=== PATIENT | female | born 2000 | race Caucasian/White ===

== ENCOUNTER 2023-12-28 01:27 | Observation (INO) ==
--- NOTE | 2023-12-28 01:42 | Emergency Department Note ---
Impression & Plan Colon abnormality, Diffuse abdominal pain ED Provider Note Name: CASSANDRA HOLLY Age: 23 Sex: Female Arrives Via: Ambulance Informant: Patient ED Provider: Fox Soliz MD Chief Complaint: Abdominal pain Impression: As per impressions above Medical Decision Makin-year-old female without significant past medical history arrives for evaluation of severe abdominal pain. By examination patient has a moderately distended abdomen tympanic and tender to palpation throughout. Patient requiring multiple rounds of IV narcotics. She is emergently taken to CT scan which reveals dilated colon but no clear evidence of obstruction per radiologist. I had significant concerns thus consulted general surgery who evaluated patient. They state they do not feel that this is a surgical emergency and will continue to monitor her and have requested medicine to admit her. With assistance I did discuss my concerns patient states with them especially when a lactic acid was obtained which is somewhat elevated. Laboratory workup is unremarkable. Patient is not . Patient is with her significant other and she has 2 children. She makes it clear she has no concerns for STI risk. She is not having any vaginal discharge other than her typical menstrual bleeding. I do not feel this is consistent with PID or torsion. Triage/Nursing Notes reviewed by Me Differential:Perforated bowel, ischemic bowel, aortic pathology, appendicitis, cholecystitis, pancreatitis, ovarian cyst rupture with hemorrhage, renal colic, pyelonephritis, PID, ectopic , torsion, many other pathologies considered Vital Signs: reviewed and remarkable for no significant abnormalities Interventions: Dilaudid 1 mg IV x 2, fentanyl 100 mcg IV, Dilaudid 0.5 mg IV, normal saline bolus Labs:ED labs Reviewed by me and remarkable for elevated lactic acid Imaging:CT of the abdomen pelvis with IV contrast. As per my informal interpretation. Diffusely dilated large bowel with air-fluid levels. Moderately dilated gastric body. See radiologist read for full however no clear obstruction noted by them. Cardiac/Tele Monitoring: Cardiac Monitoring: An Order was placed for continuous cardiac monitoring. The monitor shows a rate of 80 with a normal sinus rhythm. Consults:Discussed with general surgery service who urgently evaluated patient at bedside. They do not feel patient requires emergent operative evaluation. Discussed with Dr. Mcneil of hospitalist service. They will bring patient in for further monitoring with surgical team consulting along. Plan: Disposition:Hospitalization. Condition: Good History of Present Illness: 23-year-old female arrives for evaluation of abdominal pain. Patient notes this evening she started with lower pelvic abdominal pain. It is relatively severe but she related to her prior pain with periods. She has been having a heavy period the last few days. This is the second menstrual cycle she has had since stopping control a month ago. Patient states that pain over the evening has now become diffuse. It radiates to bilateral upper abdomen. Severe with any movement. Nothing makes better. EMS called issues given IV Toradol with minimal improvement. Patient denies any previous pain like this. She has no history of abdominal surgeries. Patient has 2 previous pregnancies and states this feels just as bad as the labor pains. Past Medical History: Heavy menstrual periods, recurrent UTIs Home Medications: As needed Benadryl, nitrofurantoin Allergies: No known allergies Vitals:Blood Pressure: 108/65, Pulse 91, RR 16, T 36.7C, O2 99% on RA Physical Exam: GENERAL: Patient is very uncomfortable appearing and in moderate distress. RESPIRATORY: No dyspnea. Clear to auscultation and equal bilaterally. CARDIOVASCULAR: Regular rate and rhythm.No murmur appreciated. GASTROINTESTINAL: Moderately distended hyperactive bowel sounds with diffuse tenderness to palpation. EXTREMITIES: Normal motion all extremities, no cyanosis, no edema. NEUROLOGIC: Alert and oriented. No focal neurologic deficits appreciated SKIN: No rash, no jaundice, no diaphoresis. PSYCH: Appropriate GCS: 15 ED Course: Times/Reassessments: Continued significant pain requiring multiple rounds of IV narcotics prior to eventually feeling bit better. Agreeable to hospitalization. Fox Soliz MD Past Med/Surg History Problem List (Updated 12/28/23 @ 06:46 by Fox Soliz MD) Diffuse abdominal pain (Acute) Colon abnormality (Acute) Abdominal pain Social History Smoking Status: Never smoker Preferred Language: Welsh Feels Safe at Home: Yes Allergies Allergies Allergy/AdvReac Type Severity Reaction Status Date / Time diphenhydramine Allergy Swelling Verified 12/28/23 04:40 [From Benadryl] of Lip/Tongue/Throat nitrofurantoin Allergy Swelling Verified 12/28/23 04:40 of Lip/Tongue/Throat Results & Data (ED) Vital Signs Vital Signs - 24 hr 12/28/23 01:20 12/28/23 01:31 12/28/23 01:33 Temperature 36.7 C Temperature Source Oral Pulse Rate 101 H 102 H 108 H Pulse Rate from SpO2 Sensor 101 H Pulse Rhythm Regular Pulse Strength Normal Respiratory Rate 22 37 H Respiratory Effort / Characteristics Non-Labored Spontaneous Respiratory Depth Normal Respiratory Pattern Regular Blood Pressure 128/77 128/77 Blood Pressure Mean 94 94 Blood Pressure Position Lying Pulse Oximetry 98 99 Oxygen Delivery Method Room Air Sepsis Recent Fever Within 48 Hours No Sepsis New/Unexplained Change in Mental Status N/A Sepsis Action Taken by Nursing Physician Notified 12/28/23 02:18 12/28/23 02:30 12/28/23 03:30 Temperature Temperature Source Pulse Rate 132 H 76 Pulse Rate from SpO2 Sensor 137 H 70 Pulse Rhythm Pulse Strength Respiratory Rate 32 H 20 Respiratory Effort / Characteristics Respiratory Depth Respiratory Pattern Blood Pressure 130/87 130/56 L 96/48 L Blood Pressure Mean 107 80 64 Blood Pressure Position Pulse Oximetry 81 L 100 Oxygen Delivery Method Sepsis Recent Fever Within 48 Hours Sepsis New/Unexplained Change in Mental Status Sepsis Action Taken by Nursing 12/28/23 04:00 12/28/23 04:33 12/28/23 04:57 Temperature Temperature Source Pulse Rate 83 80 Pulse Rate from SpO2 Sensor 86 Pulse Rhythm Pulse Strength Respiratory Rate 25 H 16 Respiratory Effort / Characteristics Respiratory Depth Respiratory Pattern Blood Pressure 108/71 119/85 108/65 Blood Pressure Mean 85 96 79 Blood Pressure Position Pulse Oximetry 97 99 Oxygen Delivery Method Sepsis Recent Fever Within 48 Hours Sepsis New/Unexplained Change in Mental Status Sepsis Action Taken by Nursing 12/28/23 05:36 Temperature Temperature Source Pulse Rate 91 H Pulse Rate from SpO2 Sensor Pulse Rhythm Pulse Strength Respiratory Rate Respiratory Effort / Characteristics Respiratory Depth Respiratory Pattern Blood Pressure Blood Pressure Mean Blood Pressure Position Pulse Oximetry Oxygen Delivery Method Sepsis Recent Fever Within 48 Hours Sepsis New/Unexplained Change in Mental Status Sepsis Action Taken by Nursing Laboratory Data 12/28/23 Unknown 12/28/23 Unknown Lab Results 12/28/23 12/28/23 12/28/23 Range/Units 02:42 02:58 04:27 WBC (4.8-10.8) K/ul RBC (4.20-5.40) M/uL Hgb (12.0-16.0) g/dl Hct (37.0-47.0) % MCV (80.0-100.0) fL MCH (25.0-34.0) pg MCHC (32.0-36.0) g/dL RDW Std Deviation (36.4-46.3) fL RDW Coeff of Dayana (11.5-14.5) % Plt Count (130-400) K/uL MPV (9.4-12.4) fL Immature Gran % (Auto) % Neut % (Auto) % Lymph % (Auto) % Roberts % (Auto) % Eos % (Auto) % Baso % (Auto) % Neut # (Auto) (1.40-6.50) K/uL Lymph # (Auto) (1.20-3.40) K/uL Roberts # (Auto) (0.11-0.59) K/uL Eos # (Auto) (0.00-0.50) K/uL Baso # (Auto) (0.00-0.20) K/uL Immature Gran # (Auto) (0.01-0.20) K/uL VBG pH (7.36-7.41) VBG pCO2 (38-50) mmHg VBG pO2 mmHg VBG HCO3 mmol/L VBG O2 Saturation % VBG Base Excess mEq/L Sodium (136-145) mmol/L Potassium (3.5-5.1) mmol/L Chloride (98-107) mmol/L Carbon Dioxide (21-32) mmol/L Anion Gap (3-11) BUN (6-23) mg/dl Creatinine (0.6-1.2) mg/dl Est Cr Clr Drug Dosing ml/min eGFR BUN/Creatinine Ratio (10-20) Glucose (70-99(Fasting)) mg/dl Lactate 2.2 H* 1.4 (0.4-2.0) mmol/L Calcium (8.6-10.3) mg/dl Magnesium (1.7-2.4) mg/dl Total Bilirubin (0.2-1.0) mg/dl Direct Bilirubin (0-0.2) mg/dl AST (13-39) U/L ALT (7-52) U/L Alkaline Phosphatase (34-104) U/L Total Protein (6.0-8.3) gm/dl Albumin (3.4-5.0) gm/dl Lipase (11-82) U/L TSH (0.300-4.500) uIu/ml HCG, Qual (Negative) Urine Color Yellow Urine Appearance Clear (Clear) Urine pH 7.0 (4.5-7.5) Ur Specific Holman 1.015 (1.000-1.030) Urine Protein Negative (Negative) Urine Glucose (UA) Negative (Negative) Urine Ketones Negative (Negative) Urine Blood 3+ H (Negative) Urine Nitrite Negative (Negative) Urine Bilirubin Negative (Negative) Urine Urobilinogen Negative (Negative) Ur Leukocyte Esterase 2+ H (Negative) Urine WBC (Auto) 0-5 (0-5) /hpf Urine RBC (Auto) 11-20 H (0-2) /hpf U Hyaline Cast (Auto) 0-2 (0-2) /lpf U Epithel Cells (Auto) 0-2 (0-2) /hpf Urine Bacteria (Auto) None Seen (None Seen) Urine Opiates Screen Neg (Neg) Ur Methadone, Qual Neg (Neg) Urine Fentanyl Screen Pos H (Neg) Urine Barbiturates Neg (Neg) Ur Phencyclidine (PCP) Neg (Neg) U Amphetamin/Meth Scrn Neg (Neg) MDMA (Ecstasy) Screen Neg (Neg) U Benzodiazepines Scrn Neg (Neg) Ur Cocaine Metabolite Neg (Neg) U Marijuana (THC) Screen Neg (Neg) 12/28/23 12/28/23 Range/Units 04:44 Unknown WBC 9.90 (4.8-10.8) K/ul RBC 4.06 L (4.20-5.40) M/uL Hgb 12.5 (12.0-16.0) g/dl Hct 35.8 L (37.0-47.0) % MCV 88.2 (80.0-100.0) fL MCH 30.8 (25.0-34.0) pg MCHC 34.9 (32.0-36.0) g/dL RDW Std Deviation 38.3 (36.4-46.3) fL RDW Coeff of Dayana 11.8 (11.5-14.5) % Plt Count 393 (130-400) K/uL MPV 10.2 (9.4-12.4) fL Immature Gran % (Auto) 0.2 % Neut % (Auto) 62.3 % Lymph % (Auto) 28.7 % Roberts % (Auto) 6.7 % Eos % (Auto) 1.4 % Baso % (Auto) 0.7 % Neut # (Auto) 6.17 (1.40-6.50) K/uL Lymph # (Auto) 2.84 (1.20-3.40) K/uL Roberts # (Auto) 0.66 H (0.11-0.59) K/uL Eos # (Auto) 0.14 (0.00-0.50) K/uL Baso # (Auto) 0.07 (0.00-0.20) K/uL Immature Gran # (Auto) 0.02 (0.01-0.20) K/uL VBG pH 7.43 H (7.36-7.41) VBG pCO2 35 L (38-50) mmHg VBG pO2 61 mmHg VBG HCO3 23 mmol/L VBG O2 Saturation 91.4 % VBG Base Excess -0.6 mEq/L Sodium 139 (136-145) mmol/L Potassium 2.9 L (3.5-5.1) mmol/L Chloride 105 (98-107) mmol/L Carbon Dioxide 20 L (21-32) mmol/L Anion Gap 14 H (3-11) BUN 9 (6-23) mg/dl Creatinine 0.71 (0.6-1.2) mg/dl Est Cr Clr Drug Dosing 123.3 ml/min eGFR 122.45 BUN/Creatinine Ratio 12.7 (10-20) Glucose 106 H (70-99(Fasting)) mg/dl Lactate (0.4-2.0) mmol/L Calcium 9.7 (8.6-10.3) mg/dl Magnesium 1.9 (1.7-2.4) mg/dl Total Bilirubin 0.3 (0.2-1.0) mg/dl Direct Bilirubin 0.1 (0-0.2) mg/dl AST 22 (13-39) U/L ALT 13 (7-52) U/L Alkaline Phosphatase 66 (34-104) U/L Total Protein 7.4 (6.0-8.3) gm/dl Albumin 4.7 (3.4-5.0) gm/dl Lipase 28 (11-82) U/L TSH 3.400 (0.300-4.500) uIu/ml HCG, Qual Negative (Negative) Urine Color Urine Appearance (Clear) Urine pH (4.5-7.5) Ur Specific Holman (1.000-1.030) Urine Protein (Negative) Urine Glucose (UA) (Negative) Urine Ketones (Negative) Urine Blood (Negative) Urine Nitrite (Negative) Urine Bilirubin (Negative) Urine Urobilinogen (Negative) Ur Leukocyte Esterase (Negative) Urine WBC (Auto) (0-5) /hpf Urine RBC (Auto) (0-2) /hpf U Hyaline Cast (Auto) (0-2) /lpf U Epithel Cells (Auto) (0-2) /hpf Urine Bacteria (Auto) (None Seen) Urine Opiates Screen (Neg) Ur Methadone, Qual (Neg) Urine Fentanyl Screen (Neg) Urine Barbiturates (Neg) Ur Phencyclidine (PCP) (Neg) U Amphetamin/Meth Scrn (Neg) MDMA (Ecstasy) Screen (Neg) U Benzodiazepines Scrn (Neg) Ur Cocaine Metabolite (Neg) U Marijuana (THC) Screen (Neg) Administered Medications Magnesium Sulfate/Dextrose (Magnesium Sulfate / D5w) 1 gm in 100 mls @ 50 mls/hr IV ONE STA Stop: 12/28/23 06:43 Last Admin: 12/28/23 06:16 Dose: 50 mls/hr Documented By: SHANNAN Potassium Chloride 20 meq/ (Lactated Ringer's) 1,010 mls @ 200 mls/hr IV .Q5H3M STA Stop: 12/28/23 10:07 Last Admin: 12/28/23 06:16 Dose: 200 mls/hr Documented By: SHANNAN Discontinued Medications Fentanyl Citrate (Fentanyl Citrate Pf 100 Mcg/2 Ml Vial) 100 mcg IV NOW STA Stop: 12/28/23 01:56 Last Admin: 12/28/23 01:57 Dose: 100 mcg Documented By: SHANNAN Hydromorphone HCl (Hydromorphone Inj 1 Mg/Ml Syringe) 1 mg IV NOW STA Stop: 12/28/23 01:40 Last Admin: 12/28/23 01:43 Dose: 1 mg Documented By: SHANNAN Hydromorphone HCl (Hydromorphone Inj 1 Mg/Ml Syringe) 1 mg IV NOW STA Stop: 12/28/23 02:35 Last Admin: 12/28/23 02:36 Dose: 1 mg Documented By: SHANNAN Hydromorphone HCl (Hydromorphone Inj 0.5 Mg/0.5 Ml Syr) 0.5 mg IV NOW STA Stop: 12/28/23 04:03 Last Admin: 12/28/23 04:05 Dose: 0.5 mg Documented By: SHANNAN Sodium Chloride (Nss) 1,000 mls @ 999 mls/hr IV .Q1H1M ONE Stop: 12/28/23 03:42 Last Infusion: 12/28/23 04:03 Dose: Infused Documented By: Admin: 12/28/23 03:00 Dose: 999 mls/hr Documented By: SHANNAN Piperacillin Sod/Tazobactam Sod (Zosyn) 4.5 gm in 100 mls @ 200 mls/hr IV NOW STA; Protocol Stop: 12/28/23 05:06 Last Infusion: 12/28/23 06:28 Dose: Infused Documented By: Admin: 12/28/23 05:55 Dose: 200 mls/hr Documented By: SHANNAN Ioversol (Optiray 320 100ml) 94 ml IV ONCE ONE Stop: 12/28/23 02:14 Last Admin: 12/28/23 02:13 Dose: 94 ml Documented By: DELFINA Imaging Data Radiologist's Impression: Abdomen/Pelvis CT 12/28/23 01:39 EXAM: CT abd pelvis IV con only CLINICAL HISTORY: complaining of severe abdominal pain. Patient states she has been having some abdominal pain already, but was downtown drinking and the pain got severely worse. Patient has hx of endometriosis. Patient has delivered 2 children vaginally as well. Patient states that this pain does not feel similar. No chance of . 94 ml opti 320 PW/GS TECHNIQUE: Contiguous axial images were obtained from the level of the diaphragm to the pubic symphysis without and with intravenous contrast. Coronal and sagittal reconstructions were likewise performed and indicated to increase the sensitivity for detecting clinically relevant pathology. If IV contrast material had not been administered, the likelihood of detecting abnormalities relevant to the patient's condition would have been substantially decreased. CT scan was performed according to ALARA (as low as reasonable achievable). COMPARISON: None. FINDINGS: The visualized lung bases are clear. The liver is normal in size and attenuation. No focal liver lesions are seen. There is no intra or extrahepatic biliary ductal dilatation. Hepatic vasculature is patent. The gallbladder is present. The spleen, pancreas, and adrenal glands are unremarkable. The kidneys are normal in size and attenuation. There is no hydronephrosis or perinephric fat stranding. No renal calculi or renal masses are identified. The ureters are normal in caliber and no ureteral calculi are seen. The bladder is normal in contour. Pelvic viscera are unremarkable. No focal or diffuse bowel wall thickening is identified.. Abdominal and pelvic vasculature is patent. No adenopathy or fluid collections are seen. No aggressive appearing osseous lesions are identified. Large bowel is dilated and shows gaseous distension. IMPRESSION: Large bowel is dilated and shows gaseous distension. No obvious colonic mass lesion/obstructive pathology is seen. Suggested clinical correlation and follow up imaging No other intra-abdominal abnormality seen. Electronically signed by Denton Palomo 12-28-2023 03:09 AM Chest X-Ray 12/28/23 04:27 EXAM: XR chest 1V portable CLINICAL HISTORY: LOW O2 NOT PREG WTW TECHNIQUE: An X-ray image of the chest is obtained in AP projection. COMPARISON: None. FINDINGS: Pulmonary Parenchyma: Lungs are clear bilaterally. No evidence of consolidation, collapse, or focal opacities. No pulmonary nodules are identified. No evidence of pleural effusion or pleural thickening. Heart and Mediastinum: Heart size and shape are normal. No mediastinal widening or masses. No hilar or mediastinal lymphadenopathy. Bony Thorax: Bony thorax appears intact without fractures or deformities. Soft Tissues: Soft tissues overlying the chest wall are unremarkable. IMPRESSION: - Normal chest X-ray. - No acute cardiopulmonary abnormalities are identified. Electronically signed by Ortega Martinez 12-28-2023 05:34 AM Discharge Plan Visit Data Chief Complaint: Abdominal Pain Stated Complaint: Abdominal Pain, Bleeding ED Provider: Fox Soliz Discharge Problem: Colon abnormality, Diffuse abdominal pain Forms Stand Alone Forms: [facility] Referrals Referrals: PCP,NO [Primary Care Provider] -
[2023-12-28] MEDS: HYDROmorphone INJ 1 MG/ML SYRINGE IV STA ×2 (01:43→02:36)
[2023-12-28] MEDS: fentaNYL citrate PF 100 MCG/2 ML VIAL IV STA (01:57)
[2023-12-28] MEDS: OPTIRAY 320 100ml IV ONE (02:13)
[2023-12-28 02:20] LABS: Pregnancy Test, Serum Negative (Negative)
[2023-12-28 02:27] LABS: Basophils # (auto) 0.07 K/uL (0.00-0.20); Basophils % (auto) 0.7 %; Eosinophils # (auto) 0.14 K/uL (0.00-0.50); Eosinophils % (auto) 1.4 %; Hematocrit (blood only) 35.8 % (37.0-47.0); Hemoglobin 12.5 g/dl (12.0-16.0); Immature Granulocytes # (auto) 0.02 K/uL (0.01-0.20); Immature Granulocytes % (auto) 0.2 %; Lymphocytes # (auto) 2.84 K/uL (1.20-3.40); Lymphocytes % (auto) 28.7 %; Mean Corpuscular Hemoglobin 30.8 pg (25.0-34.0); Mean Corpuscular Hgb Conc 34.9 g/dL (32.0-36.0); Mean Corpuscular Volume 88.2 fL (80.0-100.0); Mean Platelet Volume 10.2 fL (9.4-12.4); Monocytes # (auto) 0.66 K/uL (0.11-0.59); Monocytes % (auto) 6.7 %; Neutrophils # (auto) 6.17 K/uL (1.40-6.50); Neutrophils % (auto) 62.3 %; Platelet Count 393 K/uL (130-400); RDW Coefficient of Variation 11.8 % (11.5-14.5); RDW Standard Deviation 38.3 fL (36.4-46.3); Red Blood Count 4.06 M/uL (4.20-5.40)
[2023-12-28 02:36] LABS: Albumin Level 4.7 gm/dl (3.4-5.0); BUN Creatinine Ratio 12.7 (10-20); Bilirubin Direct 0.1 mg/dl (0-0.2); Bilirubin,Total 0.3 mg/dl (0.2-1.0); Calcium 9.7 mg/dl (8.6-10.3); Creatinine Clr Calc Pharmacy 123.3 ml/min; Potassium 2.9 mmol/L (3.5-5.1); Total Protein 7.4 gm/dl (6.0-8.3)
[2023-12-28] MEDS: SODIUM CHLORIDE 0.9% 1,000 ML IV ONE (03:00)
--- NOTE | 2023-12-28 03:10 | CT Scan Report ---
EXAM: CT abd pelvis IV con only CLINICAL HISTORY: complaining of severe abdominal pain. Patient states she has been having some abdominal pain already, but was downtown drinking and the pain got severely worse. Patient has hx of endometriosis. Patient has delivered 2 children vaginally as well. Patient states that this pain does not feel similar. No chance of . 94 ml opti 320 PW/GS TECHNIQUE: Contiguous axial images were obtained from the level of the diaphragm to the pubic symphysis without and with intravenous contrast. Coronal and sagittal reconstructions were likewise performed and indicated to increase the sensitivity for detecting clinically relevant pathology. If IV contrast material had not been administered, the likelihood of detecting abnormalities relevant to the patient's condition would have been substantially decreased. CT scan was performed according to ALARA (as low as reasonable achievable). COMPARISON: None. FINDINGS: The visualized lung bases are clear. The liver is normal in size and attenuation. No focal liver lesions are seen. There is no intra or extrahepatic biliary ductal dilatation. Hepatic vasculature is patent. The gallbladder is present. The spleen, pancreas, and adrenal glands are unremarkable. The kidneys are normal in size and attenuation. There is no hydronephrosis or perinephric fat stranding. No renal calculi or renal masses are identified. The ureters are normal in caliber and no ureteral calculi are seen. The bladder is normal in contour. Pelvic viscera are unremarkable. No focal or diffuse bowel wall thickening is identified.. Abdominal and pelvic vasculature is patent. No adenopathy or fluid collections are seen. No aggressive appearing osseous lesions are identified. Large bowel is dilated and shows gaseous distension. IMPRESSION: Large bowel is dilated and shows gaseous distension. No obvious colonic mass lesion/obstructive pathology is seen. Suggested clinical correlation and follow up imaging No other intra-abdominal abnormality seen. Electronically signed by Denton Palomo 12-28-2023 03:09 AM
--- NOTE | 2023-12-28 03:42 | Surgery Consultation ---
Date of Consultation December 28, 2023 Assessment & Plan (1) Abdominal pain: Patient is a 23-year-old female with a past medical history significant for endometriosis and chronic constipation who presented to the emergency department for complaints of acute onset of severe abdominal pain that started last even ing. Patient also states that she has felt nauseous and "off" throughout the day, however denies any episodes of emesis. The patient suffers from chronic constipation and it is normal for her to go over a week without having any bowel movement. However she does tell me her last bowel movement was yesterday, describes it as loose in nature, denies any blood present and she is currently still passing gas. The patient also states she stopped control about a month ago and since then has had very heavy periods and is currently menstruating. Workup in the ED labs showed a WBC of 9.9 and Lactic acid slightly elevated at 2.2. Patient's CT revealed large bowel dilation with gaseous distention without obvious colonic mass or obstruction.On exam the patient is diffusely tender throughout her abdomen however at times is distractible and was able to ambulate into the bathroom after my exam. Discussed patient's labs, CT finding, and exam in detail with on-call attending surgeon Dr. Pereira. At this time the patient does not have any definitive surgical diagnosis that would warrant emergent surgery. Surgical team recommends the following: patient be admitted for pain control, bowel rest, and IV hydration. Repeat Lactic acid level. 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 Supervising Physician Co-Signing Physician Notes I have seen and examined this patient this am. C/o considerable GERD for the past week that worsened with this acute onset of symptoms last night. Is currently being treated with Protonix. Also states she was due for pelvic US for further evaluation of suspected endometriosis this week as she had been having issues. Of note, her period is supposed to have started yesterday but did not. she believes blood she saw when she wiped after the digital rectal exam was from the anus and not her vagina. Does admit to improved pain with analgesics and appears essentially pain free during the interview. Abdomen distended but soft. CT with gas filled colon without significant solid stool burden, likely the cause of the distention. I do also appreciated some dilation of the distal small bowel. I performed a digital rectal examination this am with the patient's permission that does not reveal any mass or obstruction at the anus or very low rectum, no stool felt in the rectal vault. She remains afebrile. No identified general surgical cause for her current symptoms and she is without an acutely surgical abdomen. Recommend replete electrolytes and review medications that could potentially cause decreased bowel function. K was 2.9 early this am. Continue Protonix and continue other supportive care for now Would keep NPO for now. Will continue to follow. History of Present Illness Reason for Consultation: Abdominal pain History of Present Illness Patient is a 23-year-old female with a past medical history significant for endometriosis and chronic constipation who presented to the emergency department for complaints of acute onset of severe abdominal pain. Patient states that she was having a few drinks for her friend's birthday, who is accompanied with her at bedside, and states that while walking home she stopped and had to lay down on the sidewalk due to the pain becoming so severe. She had her friend call EMS to bring her to the emergency department for further evaluation. Patient also states that she has felt nauseous and "off" throughout the day, however has had no episodes of emesis. To note, the patient states that she has suffered with chronic constipation her entire life and it is normal for her to go over a week without having any bowel movement. However she does tell me her last bowel movement was yesterday, describes it as loose in nature, denies any blood present and she is currently still passing gas. The patient also states she stopped control about a month ago and since then has had very heavy periods and is currently menstruating. This evening she states the pain started in her lower abdomen/pelvic region and radiated into her upper abdominal region. Patient denies any previous abdominal surgeries. Upon workup in the ED she received multiple rounds of IV pain medication without much improvement of her abdominal pain. Vitals stable however during exam was slightly tachycardic into the 110s. Her labs showed a WBC of 9.9 and Lactic acid slightly elevated at 2.2. Patient's CT revealed large bowel dilation with gaseous distention without obvious colonic mass or obstruction. Due to the acute onset of pain and CT findings the surgical service was consulted for further evaluation. Patient was seen and evaluated in the ED. Patient was crying secondary to pain, her abdomen is diffusely tender on exam however she is distractible at times and was able to get up and ambulate to the bathroom with assistance. Allergies Allergy/AdvReac Type Severity Reaction Status Date / Time diphenhydramine Allergy Swelling Verified 12/28/23 08:42 [From Benadryl] of Lip/Tongue/Throat nitrofurantoin Allergy Swelling Verified 12/28/23 08:42 of Lip/Tongue/Throat Home Medications Medication Instructions Recorded Confirmed Type multivitamin 1 tab PO DAILY 12/28/23 12/28/23 History Patient History Social History Smoking Status: Never smoker Preferred Language: Turkmen Feels Safe at Home: Yes Review of Systems Review of Systems: All systems reviewed & are unremarkable except as noted in HPI & below Physical Exam Physical Exam: Awake, alert, answering questions appropriately. Patient is in mild distress/crying secondary to pain and appears to be uncomfortable. Respiratory: normal respiratory effort, lungs clear to auscultation Cardiovascular: Rate/Rhythm: regular rhythm and + tachycardic Heart Sounds: normal S1 and normal S2 Gastrointestinal (Abdomen): Abdomen soft, nondistended, +diffusely tender to palpation throughout all 4 quadrants. Skin: no rashes, warm and dry Results & Data Vital Signs (Past 12 Hours) Vital Signs Temp Pulse Resp BP Pulse Ox O2 Del Method 12/28/23 02:30 132 H 32 H 130/56 L 81 L 12/28/23 02:18 130/87 12/28/23 01:33 108 H 37 H 128/77 99 12/28/23 01:31 102 H 12/28/23 01:20 36.7 C 101 H 22 128/77 98 Room Air Diagnostic Findings EXAM: CT abd pelvis IV con only CLINICAL HISTORY: complaining of severe abdominal pain. Patient states she has been having some abdominal pain already, but was downtown drinking and the pain got severely worse. Patient has hx of endometriosis. Patient has delivered 2 children vaginally as well. Patient states that this pain does not feel similar. No chance of . 94 ml opti 320 PW/GS TECHNIQUE: Contiguous axial images were obtained from the level of the diaphragm to the pubic symphysis without and with intravenous contrast. Coronal and sagittal reconstructions were likewise performed and indicated to increase the sensitivity for detecting clinically relevant pathology. If IV contrast material had not been administered, the likelihood of detecting abnormalities relevant to the patient's condition would have been substantially decreased. CT scan was performed according to ALARA (as low as reasonable achievable). COMPARISON: None. FINDINGS: The visualized lung bases are clear. The liver is normal in size and attenuation. No focal liver lesions are seen. There is no intra or extrahepatic biliary ductal dilatation. Hepatic vasculature is patent. The gallbladder is present. The spleen, pancreas, and adrenal glands are unremarkable. The kidneys are normal in size and attenuation. There is no hydronephrosis or perinephric fat stranding. No renal calculi or renal masses are identified. The ureters are normal in caliber and no ureteral calculi are seen. The bladder is normal in contour. Pelvic viscera are unremarkable. No focal or diffuse bowel wall thickening is identified.. Abdominal and pelvic vasculature is patent. No adenopathy or fluid collections are seen. No aggressive appearing osseous lesions are identified. Large bowel is dilated and shows gaseous distension. IMPRESSION: Large bowel is dilated and shows gaseous distension. No obvious colonic mass lesion/obstructive pathology is seen. Suggested clinical correlation and follow up imaging No other intra-abdominal abnormality seen. PG Care Time/CCT Total # of Minutes Spent Total Time Spent with Patient: Total time spent is greater than 50% in coordination of care (as documented) at patient's floor/unit and/or counseling patient: Coding Level of Care Code 55682 OFFICE CONSULT LVL Diagnoses Abdominal pain R10.9
[2023-12-28 03:49] LABS: Appearance Urine Clear (Clear); Bacteria Urine Automated None Seen (None Seen); Bilirubin Urine Negative (Negative); Blood Urine 3+ (Negative); Cast Urine Automated 0-2 /lpf (0-2); Color Urine Yellow; Epithelial Cell Urine Auto 0-2 /hpf (0-2); Glucose Urine UA Negative (Negative); Ketones Urine Negative (Negative); Leukocyte Esterase Urine 2+ (Negative); Nitrite Urine Negative (Negative); Protein Urine Negative (Negative); Specific Gravity Urine 1.015 (1.000-1.030); Urobilinogen Urine Negative (Negative); WBC Urine Automated 0-5 /hpf (0-5)
[2023-12-28] MEDS: HYDROmorphone INJ 0.5 MG/0.5 ML SYR IV STA (04:05)
[2023-12-28] MEDS ORDERED: Patient's ALLERGY Info needs ENTERED STA (04:37)
[2023-12-28 04:39] LABS: Magnesium 1.9 mg/dl (1.7-2.4)
[2023-12-28 04:55] LABS: Thyroid Stimulating Hormone 3.4 uIu/ml (0.300-4.500)
[2023-12-28 04:58] LABS: Base Excess VBG -0.6 mEq/L; HCO3 VBG 23 mmol/L; Oxygen Saturation VBG 91.4 %; PCO2 VBG 35 mmHg (38-50); PO2 VBG 61 mmHg; pH VBG 7.43 (7.36-7.41)
[2023-12-28 05:06] LABS: Amphetamines+Metham, Urine Neg (Neg); Barbiturates, Urine Neg (Neg); Benzodiazepine, Urine Neg (Neg); Cocaine, Urine Neg (Neg); Fentanyl, Urine Pos (Neg); MDMA (Ecstacy), Urine Neg (Neg); Marijuana, Urine Neg (Neg); Methadone, Urine Neg (Neg); Opiate, Urine Neg (Neg); Phencyclidine, Urine Neg (Neg)
--- NOTE | 2023-12-28 05:34 | XRay Report ---
EXAM: XR chest 1V portable CLINICAL HISTORY: LOW O2 NOT PREG WTW TECHNIQUE: An X-ray image of the chest is obtained in AP projection. COMPARISON: None. FINDINGS: Pulmonary Parenchyma: Lungs are clear bilaterally. No evidence of consolidation, collapse, or focal opacities. No pulmonary nodules are identified. No evidence of pleural effusion or pleural thickening. Heart and Mediastinum: Heart size and shape are normal. No mediastinal widening or masses. No hilar or mediastinal lymphadenopathy. Bony Thorax: Bony thorax appears intact without fractures or deformities. Soft Tissues: Soft tissues overlying the chest wall are unremarkable. IMPRESSION: - Normal chest X-ray. - No acute cardiopulmonary abnormalities are identified. Electronically signed by Ortega Martinez 12-28-2023 05:34 AM
--- NOTE | 2023-12-28 05:52 | History & Physical Report ---
Date of Service December 28, 2023 Assessment & Plan (1) Abdominal pain: Plan: Large bowel dilatation LGIB rule out infectious causes ? UTI, possible sepsis Burning abdominal pain going to the chest, possible GERD Hypokalemia secondary to illness Bilateral leg pain/cramping possibly secondary to hypokalemia rule out DVT ADHD, anxiety/mood disorder, not on maintenance medications hx endometriosis, current abdominal pain different from endometriosis attack as per patient. Medical telemetry Bowel rest General Surgery consult for large bowel dilatation (No definitive surgical diagnosis as per consult note.) Stool cultures, stool C. difficile GI consult re: LGIB, large bowel dilatation Follow H&H, transfuse PRBC if hemoglobin less than 7 and or for symptomatic anemia CS, Zosyn for now PPI for possible GERD Replace electrolytes LE venous Dopplers rule out DVT DVT prophylaxis. SCDs if no blood clot on Dopplers given GI bleed Full code Text document was generated using [employer] voice recognition software. It may contain grammatical or spelling errors. Kindly contact undersigned for clarification of any documentation item in question. History of Present Illness Chief Complaint: Abdominal pain, bloody diarrhea Primary Care Provider: Dr. Grove History obtained from patient, family, and records. Medical history significant for ADHD, anxiety/mood disorder, endometriosis. Recent [facility] ER visit 2 weeks ago for cough symptoms. Patient children with RSV. Chest x-ray negative for pneumonia. COVID-19 and influenza swabs negative. Patient discharged home with Katherine Landa. Last night, patient had sudden onset burning abdominal pain associated with nausea followed by bloody diarrhea. Abdominal pain going to the chest causing her to be short of breath. Denies headache symptoms. Patient felt like she was going to pass out. Achy bilateral leg pain. No recent antibiotic Rx or out-of-town travel. Usual heavy menses. Patient brought to ER for evaluation. 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 Allergies Allergy/AdvReac Type Severity Reaction Status Date / Time diphenhydramine Allergy Swelling Verified 12/28/23 08:42 [From Benadryl] of Lip/Tongue/Throat nitrofurantoin Allergy Swelling Verified 12/28/23 08:42 of Lip/Tongue/Throat Home Medications Medication Instructions Recorded Confirmed Type multivitamin 1 tab PO DAILY 12/28/23 12/28/23 History Past Med/Surg History Problem List (Updated 12/28/23 @ 06:46 by Fox Soliz MD) Diffuse abdominal pain (Acute) Colon abnormality (Acute) Abdominal pain Social History Smoking Status: Never smoker Preferred Language: Urdu Feels Safe at Home: Yes Review of Systems Review of Systems: As per HPI, all other systems reviewed and negative Physical Exam Physical Exam: GENERAL: Comfortable, slightly anxious, dysphonia, no respiratory distress SKIN: Normal color, warm HEENT: [place] palpebral conjunctivae, no ptosis, dry buccal mucosa NECK : Supple, no tenderness CHEST : CTA, no tenderness HEART : RRR, no obvious murmurs ABDOMEN: Marked distention, hypogastric tenderness EXTREMITIES : No LE swelling/tenderness, no other conspicuous deformities noted NEUROLOGIC : Coherent, no facial asymmetry, no other gross focality Results & Data Results & Data Vital Signs (Past 12 Hours) Vital Signs Temp Pulse Resp BP Pulse Ox O2 Del Method 12/28/23 04:57 80 16 108/65 99 12/28/23 04:33 83 25 H 119/85 97 12/28/23 04:00 108/71 12/28/23 03:30 76 20 96/48 L 100 12/28/23 02:30 132 H 32 H 130/56 L 81 L 12/28/23 02:18 130/87 12/28/23 01:33 108 H 37 H 128/77 99 12/28/23 01:31 102 H 12/28/23 01:20 36.7 C 101 H 22 128/77 98 Room Air Laboratory Results Laboratory Results WBC 9.90 K/ul (4.8-10.8) 12/28/23 Unknown RBC 4.06 M/uL (4.20-5.40) L 12/28/23 Unknown Hgb 12.5 g/dl (12.0-16.0) 12/28/23 Unknown Hct 35.8 % (37.0-47.0) L 12/28/23 Unknown MCV 88.2 fL (80.0-100.0) 12/28/23 Unknown MCH 30.8 pg (25.0-34.0) 12/28/23 Unknown MCHC 34.9 g/dL (32.0-36.0) 12/28/23 Unknown RDW Std Deviation 38.3 fL (36.4-46.3) 12/28/23 Unknown RDW Coeff of Dayana 11.8 % (11.5-14.5) 12/28/23 Unknown Plt Count 393 K/uL (130-400) 12/28/23 Unknown MPV 10.2 fL (9.4-12.4) 12/28/23 Unknown Immature Gran % (Auto) 0.2 % 12/28/23 Unknown Neut % (Auto) 62.3 % 12/28/23 Unknown Lymph % (Auto) 28.7 % 12/28/23 Unknown Tift % (Auto) 6.7 % 12/28/23 Unknown Eos % (Auto) 1.4 % 12/28/23 Unknown Baso % (Auto) 0.7 % 12/28/23 Unknown Neut # (Auto) 6.17 K/uL (1.40-6.50) 12/28/23 Unknown Lymph # (Auto) 2.84 K/uL (1.20-3.40) 12/28/23 Unknown Tift # (Auto) 0.66 K/uL (0.11-0.59) H 12/28/23 Unknown Eos # (Auto) 0.14 K/uL (0.00-0.50) 12/28/23 Unknown Baso # (Auto) 0.07 K/uL (0.00-0.20) 12/28/23 Unknown Immature Gran # (Auto) 0.02 K/uL (0.01-0.20) 12/28/23 Unknown VBG pH 7.43 (7.36-7.41) H 12/28/23 04:44 VBG pCO2 35 mmHg (38-50) L 12/28/23 04:44 VBG pO2 61 mmHg 12/28/23 04:44 VBG HCO3 23 mmol/L 12/28/23 04:44 VBG O2 Saturation 91.4 % 12/28/23 04:44 VBG Base Excess -0.6 mEq/L 12/28/23 04:44 Sodium 139 mmol/L (136-145) 12/28/23 Unknown Potassium 2.9 mmol/L (3.5-5.1) L 12/28/23 Unknown Chloride 105 mmol/L (98-107) 12/28/23 Unknown Carbon Dioxide 20 mmol/L (21-32) L 12/28/23 Unknown Anion Gap 14 (3-11) H 12/28/23 Unknown BUN 9 mg/dl (6-23) 12/28/23 Unknown Creatinine 0.71 mg/dl (0.6-1.2) 12/28/23 Unknown Est Cr Clr Drug Dosing 123.3 ml/min 12/28/23 Unknown eGFR 122.45 12/28/23 Unknown BUN/Creatinine Ratio 12.7 (10-20) 12/28/23 Unknown Glucose 106 mg/dl (70-99(Fasting)) H 12/28/23 Unknown Lactate 1.4 mmol/L (0.4-2.0) 12/28/23 04:27 Calcium 9.7 mg/dl (8.6-10.3) 12/28/23 Unknown Magnesium 1.9 mg/dl (1.7-2.4) 12/28/23 Unknown Total Bilirubin 0.3 mg/dl (0.2-1.0) 12/28/23 Unknown Direct Bilirubin 0.1 mg/dl (0-0.2) 12/28/23 Unknown AST 22 U/L (13-39) 12/28/23 Unknown ALT 13 U/L (7-52) 12/28/23 Unknown Alkaline Phosphatase 66 U/L (34-104) 12/28/23 Unknown Total Protein 7.4 gm/dl (6.0-8.3) 12/28/23 Unknown Albumin 4.7 gm/dl (3.4-5.0) 12/28/23 Unknown Lipase 28 U/L (11-82) 12/28/23 Unknown TSH 3.400 uIu/ml (0.300-4.500) 12/28/23 Unknown HCG, Qual Negative (Negative) 12/28/23 Unknown Urine Color Yellow 12/28/23 02:58 Urine Appearance Clear (Clear) 12/28/23 02:58 Urine pH 7.0 (4.5-7.5) 12/28/23 02:58 Ur Specific Bailey 1.015 (1.000-1.030) 12/28/23 02:58 Urine Protein Negative (Negative) 12/28/23 02:58 Urine Glucose (UA) Negative (Negative) 12/28/23 02:58 Urine Ketones Negative (Negative) 12/28/23 02:58 Urine Blood 3+ (Negative) H 12/28/23 02:58 Urine Nitrite Negative (Negative) 12/28/23 02:58 Urine Bilirubin Negative (Negative) 12/28/23 02:58 Urine Urobilinogen Negative (Negative) 12/28/23 02:58 Ur Leukocyte Esterase 2+ (Negative) H 12/28/23 02:58 Urine WBC (Auto) 0-5 /hpf (0-5) 12/28/23 02:58 Urine RBC (Auto) 11-20 /hpf (0-2) H 12/28/23 02:58 U Hyaline Cast (Auto) 0-2 /lpf (0-2) 12/28/23 02:58 U Epithel Cells (Auto) 0-2 /hpf (0-2) 12/28/23 02:58 Urine Bacteria (Auto) None Seen (None Seen) 12/28/23 02:58 Urine Opiates Screen Neg (Neg) 12/28/23 02:58 Ur Methadone, Qual Neg (Neg) 12/28/23 02:58 Urine Fentanyl Screen Pos (Neg) H 12/28/23 02:58 Urine Barbiturates Neg (Neg) 12/28/23 02:58 Ur Phencyclidine (PCP) Neg (Neg) 12/28/23 02:58 U Amphetamin/Meth Scrn Neg (Neg) 12/28/23 02:58 MDMA (Ecstasy) Screen Neg (Neg) 12/28/23 02:58 U Benzodiazepines Scrn Neg (Neg) 12/28/23 02:58 Ur Cocaine Metabolite Neg (Neg) 12/28/23 02:58 U Marijuana (THC) Screen Neg (Neg) 12/28/23 02:58 Impressions Abdomen/Pelvis CT 12/28/23 01:39 EXAM: CT abd pelvis IV con only CLINICAL HISTORY: complaining of severe abdominal pain. Patient states she has been having some abdominal pain already, but was downtown drinking and the pain got severely worse. Patient has hx of endometriosis. Patient has delivered 2 children vaginally as well. Patient states that this pain does not feel similar. No chance of . 94 ml opti 320 PW/GS TECHNIQUE: Contiguous axial images were obtained from the level of the diaphragm to the pubic symphysis without and with intravenous contrast. Coronal and sagittal reconstructions were likewise performed and indicated to increase the sensitivity for detecting clinically relevant pathology. If IV contrast material had not been administered, the likelihood of detecting abnormalities relevant to the patient's condition would have been substantially decreased. CT scan was performed according to ALARA (as low as reasonable achievable). COMPARISON: None. FINDINGS: The visualized lung bases are clear. The liver is normal in size and attenuation. No focal liver lesions are seen. There is no intra or extrahepatic biliary ductal dilatation. Hepatic vasculature is patent. The gallbladder is present. The spleen, pancreas, and adrenal glands are unremarkable. The kidneys are normal in size and attenuation. There is no hydronephrosis or perinephric fat stranding. No renal calculi or renal masses are identified. The ureters are normal in caliber and no ureteral calculi are seen. The bladder is normal in contour. Pelvic viscera are unremarkable. No focal or diffuse bowel wall thickening is identified.. Abdominal and pelvic vasculature is patent. No adenopathy or fluid collections are seen. No aggressive appearing osseous lesions are identified. Large bowel is dilated and shows gaseous distension. IMPRESSION: Large bowel is dilated and shows gaseous distension. No obvious colonic mass lesion/obstructive pathology is seen. Suggested clinical correlation and follow up imaging No other intra-abdominal abnormality seen. Electronically signed by Denton Palomo 12-28-2023 03:09 AM Chest X-Ray 12/28/23 04:27 EXAM: XR chest 1V portable CLINICAL HISTORY: LOW O2 NOT PREG WTW TECHNIQUE: An X-ray image of the chest is obtained in AP projection. COMPARISON: None. FINDINGS: Pulmonary Parenchyma: Lungs are clear bilaterally. No evidence of consolidation, collapse, or focal opacities. No pulmonary nodules are identified. No evidence of pleural effusion or pleural thickening. Heart and Mediastinum: Heart size and shape are normal. No mediastinal widening or masses. No hilar or mediastinal lymphadenopathy. Bony Thorax: Bony thorax appears intact without fractures or deformities. Soft Tissues: Soft tissues overlying the chest wall are unremarkable. IMPRESSION: - Normal chest X-ray. - No acute cardiopulmonary abnormalities are identified. Electronically signed by Ortega Martinez 12-28-2023 05:34 AM
[2023-12-28] MEDS: PIPERACILLIN/TAZOBACTAM 4.5 GM/100 ML BAG IV STA (05:55)
[2023-12-28] MEDS ORDERED: LORazepam 0.5 MG TAB PO PRN (05:56)
[2023-12-28] MEDS: POTASSIUM CHLORIDE 20 MEQ in LACTATED RINGER'S 1,000 ML IV STA (06:16)
[2023-12-28] MEDS: MAGNESIUM SULFATE / D5W 1 GM/100 ML BAG IV STA (06:16)
[2023-12-28] MEDS ORDERED: ACETAMINOPHEN 1,000 MG/100 ML VIAL IV PRN (06:17)
[2023-12-28 07:39] LABS: Hematocrit (blood only) 33.3 % (37.0-47.0); Hemoglobin 11.7 g/dl (12.0-16.0)
[2023-12-28] MEDS: PANTOprazole 40 MG/10 ML SYR IV STA (07:48)
--- NOTE | 2023-12-28 10:21 | Ultrasound Report ---
BILATERAL LOWER EXTREMITY VENOUS DOPPLER HISTORY: Acute pain of the lower legs leg pain COMPARISON STUDY: None. FINDINGS: There is normal compressibility, flow, and augmentation within the bilateral lower extremit y deep venous systems. IMPRESSION: No DVT within the right or left lower extremity. ACT 112: Negative or not required by law. Electronically signed by: Shelton Moran M.D. 12/28/2023 10:19 AM
[2023-12-28] MEDS: POTASSIUM CHLORIDE CRTAB 20 MEQ TABCR PO STA (11:15)
[2023-12-28] MEDS: PROMETHAZINE 6.25 MG/50.25 ML BAG IV PRN (11:15)
--- NOTE | 2023-12-28 11:40 | Communication Note ---
Date of Service: December 28, 2023 Patient was seen and examined at bedside. 23-year-old lady with PMH of ADHD, anxiety/mood disorder, endometriosis complaining of sudden onset burning abdominal pain associated with nausea followed by bloody diarrhea. She reports abdominal pain going up to the chest causing her to be short of breath. Patient felt like she was going to pass out but did not actually pass out. 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 She is being evaluated for the following: Abdominal pain Large bowel dilatation Concern for lower GI bleed Concern for UTI Possible GERD Possible sepsis: Respiratory rate and pulse are elevated at presentation, likely secondary to possible UTI Patient coming in with burning abdominal pain going up to the chest causing shortness of breath, patient denied passing out. 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 Trop 5.6 & Beta-hCG negative at presentation, hemoglobin around 12.5. TSH and lipase WNL. Of note, patient moves bowel once every 2 weeks. Admitting imagings: CTAP: Dilated large bowel/gaseous distention. No obvious colonic mass lesion/obstructive pathology seen. CXR with no acute findings. BLE venous Doppler:Negative for DVT. Lactate elevated at presentation at 2.2, status post IV fluid, lactate resolved. Rule out infection. Follow admitting blood and urine culture. General surgery consulted for large bowel dilatation. Facilitate bowel regimen to help move bowel, no signs of obstruction, low threshold for repeat KUB imaging. Will get FOBT, GI consult, await further recommendation. Trend H&H twice a day or as needed. Patient started on Zosyn 12/27, will continue until further culture results are available. Patient started on pantoprazole, will continue, monitor symptoms. Patient reports improvement in her belly pain and distention to some extent, will continue to follow. Stool Cx and C diff are sent, follow. Hypokalemia:K 2.9 at presentation. Likely secondary to acute illness. Replete and monitor. Bilateral leg pain/cramping: Possibly secondary to hypokalemia, BLE US Doppler negative for DVT. Continue to monitor. ADHD, anxiety/mood disorder: Not on maintenance medication. History of endometriosis: Current abdominal pain different from endometriosis attack as per patient. Will get US pelvis to rule out gynecological issue. DVT prophylaxis. SCDs as no blood clot on Dopplers given GI bleed Full code Text document was generated using [employer] voice recognition software. It may contain grammatical or spelling errors. Kindly contact undersigned for clarification of any documentation item in question. For detailed information on the patient, refer to today's H&P note.
--- OUTSIDE RECORDS SUMMARY | 2023-12-28 12:11 | External Medical Summary | Summary of Care ---
Author Name Unknown Organization [facility] Address [address] [facility] [address] Phone [phone] Care Team Providers Care Reservations Manager Name Role Phone Lauryn Grove MD Primary Care Provide r Reason for Visit * Reason Onset Date Comments Referral 11/22/2023 SP 30-Day Encounter Details Date Type Department Care Team (Late st Contact Info) Description 11/22/2023 New Patient Triage (LAUNDRY MACHINE MECHANIC USE ONLY) Hematology/Oncology [facility] [address] [place] [address] Marleny Corey CRNP [address] [facility] [place] [address] Referral (SP 30-Day) Allergies Active Allergy Reactions Criticality Noted Date Comments Diphenhydramine 08/02/2022 Nitrofurantoin High 12/23/2018 Other reaction(s): swelling of face, tongue, eyes documented as of this encounter (statuses as of 11/28/2023) Medications Medication Sig Dispensed Refills Start Date End Date Status Mirena (52 MG) 20 MCG/DAY Intrauterine Intrauterine Device (Levonorgestrel) MIRENA (52 MG) 20 MCG/DAY IUD 10/11/2021 Active Dicyclomine HCl 10 MG Oral Capsule (Bentyl)Indications: Lower abdominal pain,Loose bowel movement Take 1 Capsule by mouth 2 times a day as needed for Pain or Gas. For abdominal pain 40 Capsule 2 10/25/2022 Active Citalopram Hydrobromide 10 MG Oral Tablet (CeleXA)Indications: Current mild episode of major depressive disorder without prior episode (HCC),Anxiety Take 1 Tablet by mouth in the morning. 30 Tablet 11 10/09/2023 Active documented as of this encounter (statuses as of 11/28/2023) Active Problems Problem Noted Date Diagnosed Date Food insecurity 11/19/2022 Overview: Per [facility] Protocol Anxiety 08/02/2022 Current mild episode of sofía r depressive disorder without prior episode 08/02/2022 Pityriasis rosea 08/02/2022 documented as of this encounter (statuses as of 11/28/2023) Immunizations No known immunizationsdocumented as of this encounter Social History Tobacco Use Types Packs/Day Years Used Date Smoking Tobacco: Never Smokeless Tobacco: Never Alcohol Use Standard Drinks/Week Comments Yes 0 (1 standard drink = 0.6 oz pur e alcohol) Hunger Vital Sign Answer Date Recorded Within the past 12 months, y ou worried that your food would run out before you got the money to buy more. Sometimes true Within the past 12 months, t he food you bought just didn't last and you didn't have money to get more. Sometimes true Childcare Answer Date Recorded Do you feel overwhelmed with taking care of a child, family member or friend? Yes 10/24/2022 Does your family need help f inding childcare? (Household - for ages 0-17 years) Not on file 10/24/2022 Clothing Answer Date Recorded Have you been unable to get clothing when it was really needed? No 10/24/2022 Is your family able to get c lothes or diapers when needed? (Household - for ages 0-17 years) Not on file 10/24/2022 Personal Safety Answer Date Recorded Do you feel unsafe or have concerns for your saf ety? No 10/24/2022 Do you have concerns for you r family's safety? (Household - for ages 0-17 years) Not on file 10/24/2022 Utilities Answer Date Recorded Do you have trouble paying y our heating, water, or electric bill? (Adult - for ages 18 years and over) Not on file 10/25/2023 Is your family able to pay t he heat, water, or electric bill? (Household - for ages 0-17 years) Not on file 10/25/2023 Does your family have access to good internet? (Household - for ages 0-17 years) Not on file 10/25/2023 Employment Status Answer Date Recorded Are you unemployed or without regular income? Ye s 10/24/2022 Does the household have a re gular source of income? (Household - for ages 0-17 years) Not on file 10/24/2022 Social Connections Answer Date Recorded How often do you feel lonely or isolated from those around you? (Adult - for ages 18 years and over) Not on file 10/25/2023 Financial Resource Strain Answer Date R ecorded Do you have any trouble payi ng for your medications, or do you think you might in the future? No 10/24/2022 Does your family have troubl e paying for medicine? (Household - for ages 0-17 years) Not on file 10/24/2022 Transportation Needs Answer Date Record ed READ ONLY Do you have troubl e getting a ride to medical visits or work? Never True 10/24/2022 Does your family have a hard time getting a ride to doctors visits? (Household - for ages 0-17 years) Not on file 10/24/2022 Has lack of transportation k ept you from medical appointments, meetings, work, or from getting things needed for daily living? Check all that apply. (Adult - for ages 18 years and over) Not on file 10/24/2022 Do you (or your family) have trouble finding or paying for a ride (transportation)? (Household - for ages 0-17 years) Not on file 10/24/2022 Housing Stability Answer Date Recorded Do you currently live in a s helter or have no steady place to sleep at night? No 10/24/2022 READ ONLY Do you think you a re at risk of becoming homeless? No 10/24/2022 Does your family worry about paying for your home or becoming homeless? (Household - for ages 0-17 years) Not on file 0 10/24/2022 Are you homeless or worried that you might be in the future? (Adult - for ages 18 years and over) Not on file Are you (or your family) claudia eless or worried that you might be in the future? (Household - for ages 0-17 years) Not on file 09 / Food Insecurity Answer Date Recorded Do you need food for this week? No 10/24/2022 Are you able to get enough f ood for your family? (Household - for ages 0-17 years) Not on file 10/24/2022 Does your family need food t his week? (Household - for ages 0-17 years) Not on file 10/24/2022 Do you always have enough fo od for your family? (Household - for ages 0-17 years) Not on file 10/24/2022 Sex and Gender Information Value Date Recorded Sex Assigned at Not on file Gender Identity Not on file Sexual Orientation Not on file Job Start Date Occupation Industry Not on file Not on file Not on file documented as of this encounter Progress Notes * Marleny Corey CRNP - 11/28/2023 12:09 PM EDT Hematology New Referral Triage Note 23 y/o female referred for iron deficiency anemia. Lab results reviewed as ordered by PCP. No iron deficiency anemia currently present. Dr. Grove: ok to cancel referral? [facility] Hematology * Ivy Arenas LPN - 11/27/2023 12:14 PM EDT Marleny: Per chart review, patient has had her lab work done, labs are currently active in process. * Ivy Arenas LPN - 11/27/2023 9:32 AM EDT 2nd attempt to contact patient, left message on patient's voicemail, return phone number provided. Patient needs to have ordered labs completed from her PCP and from [facility], we need updated lab work for review. * Ivy Arenas LPN - 11/26/2023 1:21 PM EDT Left message on patients voicemail, return phone number provided. * Marleny Corey CRNP - 11/26/2023 12:23 PM EDT Hematology New Referral Triage Note 23 y/o female referred for iron deficiency anemia. No recent lab work available for review. Reported to PCP fatigue and cold sensation. Reported she has been taking iron and vitamin c. Will need updated lab work before this patient can be appropriately scheduled. Order placed for CBCd, iron screen and ferritin. Will complete triage process once lab work is available. Yahir: please make patient aware to have lab work completed MARK. [facility] Hematology * Ivy Arenas LPN - 11/22/2023 10:24 AM EDT New Patient Triage What is the diagnosis/reason for referral?: Other [place] Enter order ID here: [id number] Specialty specific documentation: Hematology/Oncology NEW PATIENT - HEMATOLOGY/ONCOLOGY SPECIALTY TRIAGE Triage needed?: Yes Referring provider name: Dr. Beltre Confirmation of diagnosis: No TRIAGE PLAN: Baseline/staging imaging complete: No Labs available: No Per chart review the following labs have been ordered 11/21/2023, Folic Acid, B12, CBC, and Iron Referral to other specialty recommended (ie. Surgery, outpatient infusion): No Additional triage comments: Please refer to Telemedicine visit 11/21/2023, Dr. Beltre documented in this encounter Miscellaneous Notes * Addendum Note - Marleny Corey CRNP - 11/26/2023 12:36 PM EDTAddended by: MARLENY COREY on: 11/26/2023 12:36 PM Modules accepted: Orders documented in this encounter Plan of Treatment Health Maintenance Due Date Last Done Comments Depression Monitoring 2012 HIV Screening 07/28/2015 Hepatitis C Screening 2018 Pap Smear 2021 COVID-19 Vaccine ( season) 2023 05/17/2022, 04/19/2022 Influenza Vaccine (FLU shot) (#1) 2023 02/03/2019 Gonorrhea / Chlamydia Screen 11/17/2024 11/18/2023 DTap/Tdap Vaccines (7 - Td or Tdap) 12/03/2028 12/03/2018, 10/17/2005, 10/31/2001, Additional history exists Hepatitis B Vaccine Completed 10/31/2001, 05/26/2001, 01/20/2001, Additional history exists HPV (Gardasil) Vaccine Completed , 09/26/2012, 07/18/2012 MENINGOCOCCAL (MENACTRA/MENVEO) Completed 10/03/2017, 07/18/2012 Pneumococcal Vaccine: Pediatrics (0 to 5 Years) and At-Risk Patients (6 to 64 Years) Aged Out No longer eligible based on patient's age to complete this topic documented as of this encounter Medical Devices Not on filedocumented as of this encounter Results * FERRITIN (11/27/2023 12:01 PM EDT) Ferritin 61 13 - 150 ng/mL 11/28/2023 4:30 AM EDT [facility] Blood Venous blood specimen / Unknown Venipuncture / Unknown 11/27/2023 12:01 PM EDT 11/27/2023 12:01 PM EDT Marleny PRABHAKAR LAB BLOOD ORDER [facility] [address] [place] [address] * IRON SCREEN, INCLUDING TIBC (11/27/2023 12:01 PM EDT) Iron 94 33 - 151 ug/dL 11/28/2023 4:39 AM EDT [facility] Iron Binding Capacity 370 250 - 425 ug/dL 11/28/2023 4:39 AM EDT [facility] Transferrin Saturation Percent 25 15 - 55 % 11/28/2023 4:39 AM EDT [facility] Blood Venous blood specimen / Unknown Venipuncture / Unknown 11/27/2023 12:01 PM EDT 11/27/2023 12:01 PM EDT Marleny Lópezmelinda PRABHAKAR LAB BLOOD ORDER [facility] [address] [facility] [place] [phone] documented in this encounter Visit Diagnoses Diagnosis History of anemia- Primary Personal history of diseases of blood and blood-forming organs documented in this encounter Care Teams Reservations Manager Relationship Specialty Start Date End Date Lauryn Grove MD [address] [place] [address] [place] [id number] PCP - General Family Medicine 08/03/22 documented as of this encounter
--- OUTSIDE RECORDS SUMMARY | 2023-12-28 12:11 | External Medical Summary | Summary of Care ---
Author Name Unknown Organization [facility] Address [address] [facility] [address] Phone [phone] Care Team Providers Care Machine Greaser Name Role Phone Lauryn Grove MD Primary Care Provide r Reason for Visit * Reason Onset Date Comments Test Results 12/09/2023 Marleny Corey Encounter Details Date Type Department Care Team (Late st Contact Info) Description 12/09/2023 Telephone Hematology/Oncology [facility] [place] [address] Marleny Corey CRNP [address] [facility] [place] [address] Test Results (Marleny Corey ) Allergies Active Allergy Reactions Criticality Noted Date Comments Diphenhydramine 08/02/2022 Nitrofurantoin High 12/23/2018 Other reaction(s): swelling of face, tongue, eyes documented as of this encounter (statuses as of 12/09/2023) Medications Medication Sig Dispensed Refills Start Date [...] as of this encounter (statuses as of 12/09/2023) Active Problems Problem Noted Date Diagnosed Date Food insecurity 11/19/2022 Overview: Per [facility] Protocol Anxiety 08/02/2022 Current mild episode of sofía r depressive disorder without prior episode 08/02/2022 Pityriasis rosea 08/02/2022 documented as of this encounter (statuses as of 12/09/2023) Immunizations No known immunizationsdocumented as of this [...] for ages 0-17 years) Not on file Food Insecurity Answer Date Recorded Do you [...] on file documented as of this encounter Miscellaneous Notes * Telephone Encounter - Ivy Arenas LPN - 12/09/2023 2:00 PM EDT Per patient request left a detailed message on her voicemail; made patient aware her lab results were normal, that her PCP's office has cancelled her referral. Also advised patient to contact her primary care physician's office with any further questions as we are not medically managing her care atthis time. * Telephone Encounter - Jonathon Max RN - 12/09/2023 1:11 PM EDT Yahir- please see triage encounter---- patients labs were all normal, her referral to our office has been cancelled by her PCP. Please inform patient. * Telephone Encounter - Kary Simmons OSA - 12/09/2023 1:03 PM EDT Patient called to review her lab results from 11/26 for Marleny Corey. Please contact pt at [phone] and she advised if she does not answer it is okay to leave a message. Thank you. documented in this encounter Plan of Treatment [...] Not on filedocumented as of this encounter Care Teams Machine Greaser Relationship Specialty Start Date End Date Laruyn Grove MD [address] [place] [address] [place] [phone] PCP - General Family Medicine 08/03/22 documented as of this encounter
--- OUTSIDE RECORDS SUMMARY | 2023-12-28 12:11 | External Medical Summary | Summary of Care ---
Author Name Unknown Organization [facility] Address [address] [facility] [facility] [address] Phone [phone] Care Team Providers Care Reaming Machine Operator Name Role Phone Lauryn Grove MD Primary Care Provide r Encounter Details Date Type Department Care Team (Late st Contact Info) Description 12/16/2023 Orders Only Family Medicine [address] [place] [address] Lauryn Grove MD [address] [place] [address] [place] [address] Allergies Active Allergy Reactions Criticality Noted Date Comments Diphenhydramine 08/02/2022 Nitrofurantoin High 12/23/2018 Other reaction(s): swelling of face, tongue, eyes documented as of this encounter (statuses as of 12/16/2023) Medications Medication Sig Dispensed Refills Start Date [...] as of this encounter (statuses as of 12/16/2023) Active Problems Problem Noted Date Diagnosed Date Food insecurity 11/19/2022 Overview: Per [facility] Protocol Anxiety 08/02/2022 Current mild episode of sofía r depressive disorder without prior episode 08/02/2022 Pityriasis rosea 08/02/2022 documented as of this encounter (statuses as of 12/16/2023) Immunizations No known immunizationsdocumented as of this [...] on file documented as of this encounter Plan of Treatment Health Maintenance [...] Additional history exists HPV (Gardasil) Vaccine Completed 4, 09/26/2012, 07/18/2012 MENINGOCOCCAL (MENACTRA/MENVEO) Completed 10/03/2017, 07/18/2012 Pneumococcal Vaccine: Pediatrics (0 to 5 Years) and At-Risk Patients (6 to 64 Years) Aged Out No longer eligible based on patient's age to complete this topic documented as of this encounter Medical Devices Not on filedocumented as of this encounter Procedures Procedure Name Priority Date/Time Associated Diagnosis Comments XR CHEST 2 VIEWS Routine 12/14/2023 documented in this encounter Results * XR CHEST 2 VIEWS (12/14/2023) Anatomical Region Laterality Modality Chest Other 12/14/2023 History Per Patient RADIOLOGY (RAD GENER AL) documented in this encounter Care Teams Reaming Machine Operator Relationship Specialty Start Date End Date Lauryn Grove MD [address] [place] [address] [place] [phone] PCP - General Family Medicine 08/03/22 documented as of this encounter
--- OUTSIDE RECORDS SUMMARY | 2023-12-28 12:11 | External Medical Summary | Summary of Care ---
Author Name Unknown Organization [facility] Address [address] [facility] [place] [address] Phone [phone] Care Team Providers Care Registered Art Therapist Name Role Phone Lauryn Grove MD Primary Care Provide r Reason for Visit * Reason Comments Outpatient Testing Encounter Details Date Type Department Care Team (Late st Contact Info) Description 11/27/2023 12:00 PM EDT Laboratory Laboratory [address] [place] [id number] [place] [address] Other iron deficiency anemia; History of anemia Allergies Active Allergy Reactions Criticality Noted Date Comments Diphenhydramine 08/02/2022 Nitrofurantoin High 12/23/2018 Other reaction(s): swelling of face, tongue, eyes documented as of this encounter (statuses as of 11/27/2023) Medications Medication Sig Dispensed Refills Start Date [...] as of this encounter (statuses as of 11/27/2023) Active Problems Problem Noted Date Diagnosed Date Food insecurity 11/19/2022 Overview: Per [facility] Protocol Anxiety 08/02/2022 Current mild episode of sofía r depressive disorder without prior episode 08/02/2022 Pityriasis rosea 08/02/2022 documented as of this encounter (statuses as of 11/27/2023) Immunizations No known immunizationsdocumented as of this [...] as of this encounter Plan of Treatment Pending Results Name Type Priority Associated Diagnoses Date /Time VITAMIN B12 Lab Routine Other iron deficiency anemia 11/27/2023 12:01 PM EDT FOLIC ACID Lab Routine Other iron deficiency anemia 11/27/2023 12:01 PM EDT CBC WITH WBC DIFFERENTIAL Lab Routine History of anemia 11/27/2023 12:01 PM EDT IRON SCREEN, INCLUDING TIBC Lab Routine History of anemia 11/27/2023 12:01 PM EDT FERRITIN Lab Routine History of anemia 11/27/2023 12:01 PM EDT CBC Lab Routine History of anemia 11/27/2023 12:01 PM EDT DIFFERENTIAL, AUTOMATED Lab Routine History of anemia 11/27/2023 12:01 PM EDT Health Maintenance Due Date Last Done Comments [...] Not on filedocumented as of this encounter Visit Diagnoses Diagnosis Other iron deficiency anemia History of anemia Personal history of diseases of blood and blood-forming organs documented in this encounter Care Teams Registered Art Therapist Relationship Specialty Start Date End Date Lauryn Grove MD [address] [place] [address] [place] [id number] PCP - General Family Medicine 08/03/22 documented as of this encounter
--- OUTSIDE RECORDS SUMMARY | 2023-12-28 12:11 | External Medical Summary | Summary of Care ---
Author Name Unknown Organization [facility] Address [address] [facility] [address] Phone [phone] Care Team Providers Care Whipped Topping Supervisor Name Role Phone Lauryn Grove MD Primary Care Provide r Reason for Visit * Reason Onset Date Comments Referral 11/22/2023 SP 30-Day Encounter Details Date Type Department Care Team (Late st Contact Info) Description 11/22/2023 New Patient Triage (DOWEL STICKER OPERATOR USE ONLY) Hematology/Oncology [facility] [address] [facility] [place] [address] Marleny Corey CRNP [address] [facility] [place] [address] Referral (SP [...] as of this encounter Progress Notes * Ivy Arenas LPN - 11/27/2023 9:32 [...] referral?: Other [place] Enter order ID here: [id number] Specialty specific documentation: Hematology/Oncology NEW PATIENT - [...] documented in this encounter Plan of Treatment Upcoming Encounters Date Type Department Care Team (Late st Contact Info) Description 11/27/2023 12:00 PM EDT Laboratory Laboratory [address] [place] [phone] [address] [place] [address] Scheduled Orders Name Type Priority Associated Diagnoses Orde r Schedule CBC WITH WBC DIFFERENTIAL Lab Routine History of anemia Expected: 11/26/2023 (Approximate), Expires: 11/25/2024 IRON SCREEN, INCLUDING TIBC Lab Routine History of anemia Expected: 11/26/2023 (Approximate), Expires: 11/25/2024 FERRITIN Lab Routine History of anemia Expected: 11/26/2023 (Approximate), Expires: 11/25/2024 Health Maintenance Due Date Last Done Comments DTap/Tdap Vaccines (6 - Tdap) 07/28/2011 10/17/2005, 10/31/2001, 04/03/2001, Additional history exists Depression Monitoring 2012 HIV Screening 07/28/2015 Hepatitis C Screening 2018 Pap Smear 2021 COVID-19 Vaccine ( season) 2023 Influenza Vaccine (FLU shot) (#1) 2023 Gonorrhea / Chlamydia Screen 11/17/2024 11/18/2023 Hepatitis B Vaccine Completed 10/31/2001, 05/26/2001, 01/20/2001, [...] as of this encounter Visit Diagnoses Diagnosis History of anemia- Primary Personal history of diseases of blood and blood-forming organs documented in this encounter Care Teams Whipped Topping Supervisor Relationship Specialty Start Date End Date Lauryn Grove MD [address] [place] [address] [place] [phone] PCP - General Family Medicine 08/03/22 documented as of this encounter
--- OUTSIDE RECORDS SUMMARY | 2023-12-28 12:11 | External Medical Summary | Summary of Care ---
Author Name Unknown Organization [facility] Address [address] [facility] [address] Phone [phone] Care Team Providers Care Director Group Sales Name Role Phone Lauryn Grove MD Primary Care Provide r Reason for Visit * Reason Onset Date Comments Test Results 12/09/2023 Marleny Corey Encounter Details Date Type Department Care Team (Late st Contact Info) Description 12/09/2023 Telephone Hematology/Oncology [facility] [place] [address] [facility] [place] [address] Marleny Corey CRNP [address] [facility] [place] [address] Test Results (Marleny Corey ) [...] encounter Miscellaneous Notes * Telephone Encounter - Jonathon Max RN [...] for Marleny Corey. Please contact pt at [phone] and she advised if she does not [...] filedocumented as of this encounter Care Teams Director Group Sales Relationship Specialty Start Date End Date Lauryn Grove MD [address] [place] [address] [place] [phone] PCP - General Family Medicine 08/03/22 documented as of this encounter
--- OUTSIDE RECORDS SUMMARY | 2023-12-28 12:11 | External Medical Summary | Summary of Care ---
Author Name Unknown Organization [facility] [address] [facility] [address] Phone [phone] Care Team Providers Care Program Analyst Name Role Phone Lauryn Grove MD Primary Care Provide r Reason for Visit * Reason Onset Date Comments Test Results 12/09/2023 Marleny Corey Encounter Details Date Type Department Care Team (Late st Contact Info) Description 12/09/2023 Telephone Hematology/Oncology [facility] [place] [address] [facility] [place] [address] Marleny Corey CRNP 400 [facility] [place] [address] Test Results (Marleny Corey ) [...] encounter Miscellaneous Notes * Telephone Encounter - Jonathno Max RN - 12/09/2023 1:11 PM EDT Yahir- please see triage encounter---- patients labs were all normal, her referral to our office has been cancelled by her PCP. Please inform patient. * Telephone Encounter - Kary Simmons OSA - 12/09/2023 1:03 PM EDT Patient called to review her lab results from 11/26 for Marleny Corey. Please contact pt at [phone] and she advised if she does not [...] filedocumented as of this encounter Care Teams Program Analyst Relationship Specialty Start Date End Date Lauryn Grove MD [address] [place] [address] [place] [phone] PCP - General Family Medicine 08/03/22 documented as of this encounter
--- OUTSIDE RECORDS SUMMARY | 2023-12-28 12:11 | External Medical Summary | Summary of Care ---
Author Name Unknown Organization [facility] Address [address] [place] [address] Phone [phone] Care Team Providers Care Lead Quality Technician Name Role Phone Lauryn Grove MD Primary Care Provide r Reason for Visit * Reason Onset Date Comments MyCode Consent 11/27/2023 Encounter Details Date Type Department Care Team (Late st Contact Info) Description 11/27/2023 Orders Only Outcomes Research Department [address] [place], [place] [id number] Fay Sevilla CHRA MyCode Research Other*[id number]* Allergies Active Allergy Reactions Criticality Noted Date [...] as of this encounter Progress Notes * Fay Sevilla CHRA - 11/27/2023 12:06 PM EDT MyCode Consent Documentation Anna Walker provided consent/authorization to participate in the [employer] Project. documented in this encounter Plan of Treatment Scheduled Orders Name Type Priority Associated Diagnoses Orde r Schedule MYCODE INITIAL ADULT Lab Routine MyCode Research Other*[id number] Expected: 11/27/2023 (Approximate), Expires: 12/16/2024 Health Maintenance Due Date Last Done Comments [...] as of this encounter Visit Diagnoses Diagnosis MyCode Research Other*[id number]- Primary documented in this encounter Care Teams Lead Quality Technician Relationship Specialty Start Date End Date Lauryn Grove MD [address] [place] [address] [place] [phone] PCP - General Family Medicine 08/03/22 documented as of this encounter
--- OUTSIDE RECORDS SUMMARY | 2023-12-28 12:11 | External Medical Summary | Summary of Care ---
Author Name Unknown Organization [facility] Address [address] [facility] [place] [address] Phone [phone] Care Team Providers Care Human Machine Interface Engineer Name Role Phone Lauryn Grove MD Primary Care Provide r Encounter Details Date Type Department Care Team (Late st Contact Info) Description 12/14/2023 Result Scan Unspecified Department <No scans attached> Allergies Active Allergy Reactions Criticality Noted Date Comments Diphenhydramine 08/02/2022 Nitrofurantoin High 12/23/2018 Other reaction(s): swelling of face, tongue, eyes documented as of this encounter (statuses as of 12/17/2023) Medications Medication Sig Dispensed Refills Start Date [...] as of this encounter (statuses as of 12/17/2023) Active Problems Problem Noted Date Diagnosed Date Food insecurity 11/19/2022 Overview: Per [facility] Protocol Anxiety 08/02/2022 Current mild episode of sofía r depressive disorder without prior episode 08/02/2022 Pityriasis rosea 08/02/2022 documented as of this encounter (statuses as of 12/17/2023) Immunizations No known immunizationsdocumented as of this [...] Procedure Name Priority Date/Time Associated Diagnosis Comments OUTSIDE LAB RESULTS 12/14/2023 documented in this encounter Results * OUTSIDE LAB RESULTS (12/14/2023) 12/14/2023 No Physician Data Unknown LABORATORY documented in this encounter Care Teams Human Machine Interface Engineer Relationship Specialty Start Date End Date Lauryn Grove MD [address] [place] [address] [place] [phone] PCP - General Family Medicine 08/03/22 documented as of this encounter
--- OUTSIDE RECORDS SUMMARY | 2023-12-28 12:11 | External Medical Summary | Summary of Care ---
Author Name Unknown Organization [facility] Address [address] [facility] [address] Phone [phone] Care Team Providers Care Manager Crisis Name Role Phone Lauryn Grove MD Primary Care Provide r Reason for Visit * Reason Onset Date Comments Referral 11/22/2023 SP 30-Day Encounter Details Date Type Department Care Team (Late st Contact Info) Description 11/22/2023 New Patient Triage (SHIP SURVEYOR USE ONLY) Hematology/Oncology [facility] [address] [place] [address] Marleny Corey CRNP 400 [facility] [place] [address] Referral (SP 30-Day) Allergies [...] referral?: Other [facility] Enter order ID here: [id number] Specialty specific documentation: Hematology/Oncology NEW PATIENT - [...] BLOOD ORDER [facility] [address] [place] [address] * IRON SCREEN, INCLUDING TIBC [...] BLOOD ORDER [facility] [address] [facility] [place] [phone] documented in this encounter Visit Diagnoses Diagnosis History of anemia- Primary Personal history of diseases of blood and blood-forming organs documented in this encounter Care Teams Manager Crisis Relationship Specialty Start Date End Date Lauryn Grove MD [address] [place] [address] [place] [phone] PCP - General Family Medicine 08/03/22 documented as of this encounter
--- OUTSIDE RECORDS SUMMARY | 2023-12-28 12:11 | External Medical Summary | Summary of Care ---
Author Name Unknown Organization [facility] Address [address] [facility] [address] Phone [phone] Care Team Providers Care Materials Scientist Name Role Phone Lauryn Grove MD Primary Care Provide r Reason for Visit * Reason Onset Date Comments Test Results 12/09/2023 Marleny Corey Encounter Details Date Type Department Care Team (Late st Contact Info) Description 12/09/2023 Telephone Hematology/Oncology [facility] 200 [facility] [place] [address] Marleny Corey CRNP 400 [facility] [place] [address] Test Results (Marleny Corey ) [...] for Marleny Corey. Please contact pt at [phone] and she advised if she does not [...] filedocumented as of this encounter Care Teams Materials Scientist Relationship Specialty Start Date End Date Lauryn Grove MD [address] [place] [address] [place] [phone] PCP - General Family Medicine 08/03/22 documented as of this encounter
--- OUTSIDE RECORDS SUMMARY | 2023-12-28 12:11 | External Medical Summary | Summary of Care ---
Author Name Unknown Organization [facility] Address [address] [facility] [place] [address] Phone [phone] Care Team Providers Care Utility Bill Collection Clerk Name Role Phone Lauryn Grove MD Primary Care Provide r Reason for Visit * Reason Onset Date Comments Referral 11/22/2023 SP 30-Day Encounter Details Date Type Department Care Team (Late st Contact Info) Description 11/22/2023 New Patient Triage (NICKEL PLANT OPERATOR USE ONLY) Hematology/Oncology [facility] [address] [place] [address] Marleny Corey CRNP 400 [facility] [place] [address] Referral (SP 30-Day) Allergies Active Allergy Reactions Criticality Noted Date Comments Diphenhydramine 08/02/2022 Nitrofurantoin High 12/23/2018 Other reaction(s): swelling of face, tongue, eyes documented as of this encounter (statuses as of 12/25/2023) Medications Mirena (52 MG) 20 MCG/DAY Intrauterine Intrauterine Device (Levonorgestrel) MIRENA (52 MG) 20 MCG/DAY IUD 2 Active Dicyclomine HCl 10 MG Oral Capsule (Bentyl)Indicatio ns:Lower abdominal pain,Loose bowel movement Take 1 Capsule by mouth 2 times a day as needed for Pain or Gas. For abdominal pain 40 Capsule 2 3 Active Citalopram Hydrobromide 10 MG Oral Tablet (CeleXA)Indicatio ns:Current mild episode of major depressive disorder without prior episode (HCC),Anxiety Take 1 Tablet by mouth in the morning. 30 Tablet 11 4 Active documented as of this encounter (statuses as of 12/25/2023) Active Problems Problem Noted Date Diagnosed Date Food insecurity 11/19/2022 Overview: Per [facility] Protocol Anxiety 08/02/2022 Current mild episode of sofía r depressive disorder without prior episode 08/02/2022 Pityriasis rosea 08/02/2022 documented as of this encounter (statuses as of 12/25/2023) Immunizations No known immunizationsdocumented as of this [...] ages 0-17 years) Not on file 10/24/2022 Comments Unknown Sex and Gender Information Value Date Recorded Sex Assigned at Not on file Legal Sex Female 10:59 AM EDT Gender Identity Not on file Sexual Orientation Not on file documented as of this encounter Progress Notes * Ivy Arenas LPN - 11/28/2023 3:49 PM EDT Images from the original note were not included. Marleny Corey CRNP You38 minutes ago (3:10 PM) Fyi ok to cancel referral Lauryn Grove MD Thomas, Melissa Lynn, CRNP1 hour ago (2:08 PM) Hi, Yes considering pt's hgb, iron, ferritin, vit B12 and folic acid levels are normal, okay to cancel the referral Thank you. Josué Discussed care plan with patient or proxy?: No See comments from providers above. Additional imaging needed: No Additional imaging orders pended: No Further labs recommended and ordered: No Bone Marrow biopsy recommended:No [facility] clinic review recommended: No * Marleny Corey CRNP - 11/28/2023 12:09 [...] referral?: Other [place] Enter order ID here: [id number] Specialty specific documentation: Hematology/Oncology NEW PATIENT - [...] 12:01 PM EDT Marleny PRABHAKAR LAB BLOOD ORDERABLES Fi nal Result Performing Organization Address City/[facility] Co de Phone Number LABORATORY [facility] [address] [place] [address] * IRON SCREEN, INCLUDING TIBC (11/27/2023 12:01 [...] 12:01 PM EDT Marleny PRABHAKAR LAB BLOOD ORDERABLES Fi nal Result Performing Organization Address [facility] Co de Phone Number LABORATORY [facility] [address] [place] [address] documented in this encounter Visit Diagnoses Diagnosis History of anemia- Primary Personal history of diseases of blood and blood-forming organs documented in this encounter Care Teams Utility Bill Collection Clerk Relationship Specialty Start Date End Date Lauryn Grove MD [address] [place] [address] [place] [phone] PCP - General Family Medicine 08/03/22 documented as of this encounter
--- OUTSIDE RECORDS SUMMARY | 2023-12-28 12:11 | External Medical Summary | Summary of Care ---
Author Name Unknown Organization [facility] Address [address] [facility] [address] Phone [phone] Care Team Providers Care Alarm Installer Name Role Phone Lauryn Grove MD Primary Care Provide r Reason for Visit * Reason Onset Date Comments Referral 11/22/2023 SP 30-Day Encounter Details Date Type Department Care Team (Late st Contact Info) Description 11/22/2023 New Patient Triage (MATCHBOOK MAKER USE ONLY) Hematology/Oncology [facility] 200 [place] [address] Marleny Corey CRNP [facility] [...] Notes * Ivy Arenas LPN - 11/27/2023 12:14 [...] referral?: Other [place] Enter order ID here: [id number] Specialty specific documentation: Hematology/Oncology NEW PATIENT - [...] documented in this encounter Plan of Treatment Pending Results Name Type Priority Associated Diagnoses Date /Time CBC WITH WBC DIFFERENTIAL Lab Routine History of anemia 11/27/2023 12:01 PM EDT IRON SCREEN, INCLUDING TIBC Lab Routine History of anemia 11/27/2023 12:01 PM EDT FERRITIN Lab Routine History of anemia 11/27/2023 12:01 PM EDT Scheduled Orders Name Type Priority Associated Diagnoses [...] organs documented in this encounter Care Teams Alarm Installer Relationship Specialty Start Date End Date Lauryn Grove MD [address] [place] [address] [place] [phone] PCP - General Family Medicine 08/03/22 documented as of this encounter
--- OUTSIDE RECORDS SUMMARY | 2023-12-28 12:11 | External Medical Summary | Summary of Care ---
Author Name Unknown Organization [facility] Address [address] [facility] [place] [address] Phone [phone] Care Team Providers Care Wrapping Machine Operator Name Role Phone Lauryn Grove MD Primary Care Provide r Encounter Details Date Type Department Care Team (Late st Contact Info) Description 12/17/2023 Orders Only Family Medicine [address] [place] [address] Lauryn Grove MD [address] [place] [address] [place] [address] Allergies Active Allergy Reactions [...] Screening 2018 Pap Smear 2021 COVID-19 Vaccine () 10/13/2023 05/17/2022, 04/19/2022 Influenza Vaccine (FLU shot) (#1) [...] Name Priority Date/Time Associated Diagnosis Comments OUTSIDE LAB-CORONAVIRUS (COVID-19) Routine 12/14/2023 documented in this encounter Results * OUTSIDE LAB-CORONAVIRUS (COVID-19) (12/14/2023) [id number] E LAB NOT DETECTED OUTSIDE LAB (SEE SCANNED REPORT) 12/14/2023 History Per Patient LABORATORY OUTSIDE LAB (SEE SCANNED REPORT) documented in this encounter Care Teams Wrapping Machine Operator Relationship Specialty Start Date End Date Lauryn Grove MD [address] [place] [address] [place] [phone] PCP - General Family Medicine 08/03/22 documented as of this encounter
--- OUTSIDE RECORDS SUMMARY | 2023-12-28 12:11 | External Medical Summary | Summary of Care ---
Author Name Unknown Organization [facility] Address [facility] [address] Phone [phone] Care Team Providers Care Deli Manager Name Role Phone Lauryn Grove MD Primary Care Provide r Reason for Visit * Reason Onset Date Comments Test Results 12/09/2023 Marleny Corey Encounter Details Date Type Department Care Team (Late st Contact Info) Description 12/09/2023 Telephone Hematology/Oncology [facility] [address] [facility] [place] [place] [address] Marleny Corey CRNP 400 [facility] [place] [address] Test Results (Marleny Corey ) [...] for Marleny Corey. Please contact pt at [phone] and she advised if she does not [...] filedocumented as of this encounter Care Teams Deli Manager Relationship Specialty Start Date End Date Lauryn Grove MD [address] [place] [address] [place] [phone] PCP - General Family Medicine 08/03/22 documented as of this encounter
--- OUTSIDE RECORDS SUMMARY | 2023-12-28 12:11 | External Medical Summary | Summary of Care ---
Author Name Unknown Organization [facility] Address [address] [facility] [address] Phone [phone] Care Team Providers Care Bonding Machine Tender Name Role Phone Lauryn Grove MD Primary Care Provide r Reason for Visit * Reason Onset Date Comments Referral 11/22/2023 SP 30-Day Encounter Details Date Type Department Care Team (Late st Contact Info) Description 11/22/2023 New Patient Triage (MOLDER OPERATOR USE ONLY) Hematology/Oncology [facility] 200 [place] [address] Marleny Corey CRNP 400 [facility] [place] [address] Referral (SP [...] to cancel the referral Thank you. Josué * Marleny Corey CRNP - 11/28/2023 12:09 [...] referral?: Other [facility] Enter order ID here: [id number] Specialty specific documentation: Hematology/Oncology NEW PATIENT - [...] 12:01 PM EDT 11/27/2023 12:01 PM EDT Marlenyaustin Lópezmelinda PRABHAKAR LAB BLOOD ORDER [facility]KE Performing Organization Address City/[facility]ZIP Co de Phone Number LABORATORY C [address] [place] [address] * IRON SCREEN, INCLUDING TIBC (11/27/2023 12:01 [...] Marleny Lópezmelinda PRABHAKAR LAB BLOOD ORDER MIKE Performing Organization Address [facility] Co de Phone Number LABORATORY C [address] [place] [address] documented in this encounter Visit Diagnoses Diagnosis History of anemia- Primary Personal history of diseases of blood and blood-forming organs documented in this encounter Care Teams Bonding Machine Tender Relationship Specialty Start Date End Date Lauryn Grove MD [address] [place] [address] [place] [phone] PCP - General Family Medicine 08/03/22 documented as of this encounter
--- OUTSIDE RECORDS SUMMARY | 2023-12-28 12:12 | External Medical Summary | Summary of Care ---
Author Name Unknown Organization [facility] Address [address] [facility] [address] Phone [phone] Care Team Providers Care Line Analyst Name Role Phone Lauryn Grove MD Primary Care Provide r Reason for Visit * Reason Onset Date Comments Appointment 11/21/2023 HEM/ONCOLOGY Encounter Details Date Type Department Care Team (Late st Contact Info) Description 11/21/2023 Telephone Family Medicine [address] [place] [address] Denton Fuller MD [address] [place] [address] [place] [address] Appointment (HEM/ONCOLOGY) Allergies Active Allergy Reactions Criticality Noted Date Comments Diphenhydramine 08/02/2022 Nitrofurantoin High 12/23/2018 Other reaction(s): swelling of face, tongue, eyes documented as of this encounter (statuses as of 11/22/2023) Medications Medication Sig Dispensed Refills Start Date [...] as of this encounter (statuses as of 11/22/2023) Active Problems Problem Noted Date Diagnosed Date Food insecurity 11/19/2022 Overview: Per [facility] Protocol Anxiety 08/02/2022 Current mild episode of sofía r depressive disorder without prior episode 08/02/2022 Pityriasis rosea 08/02/2022 documented as of this encounter (statuses as of 11/22/2023) Immunizations No known immunizationsdocumented as of this [...] Telephone Encounter - Ivy Arenas LPN - 11/22/2023 10:47 AM EDT Nurse triage in progress. Will contact patient when completed. * Telephone Encounter - Yas Cullen OSA - 11/22/2023 8:54 AM EDT HEMATOLOGY/ONCOLOGY REFERRAL OP Status: Needs Scheduling Requested appt date: Authorizing: Denton Fuller MD in [facility] Referral: [id number] (Pending Review) Priority: Within 30 days (routine) Diagnosis: Other iron deficiency anemia [D50.8 Looks like it is still getting triaged * Telephone Encounter - Abundio Francisco OSA - 11/21/2023 3:54 PM EDT Please contact pt w an appt. Thank you documented in this encounter Plan of Treatment [...] filedocumented as of this encounter Care Teams Line Analyst Relationship Specialty Start Date End Date Lauryn Grove MD [address] [place] [address] [place] [phone] PCP - General Family Medicine 08/03/22 documented as of this encounter
--- OUTSIDE RECORDS SUMMARY | 2023-12-28 12:12 | External Medical Summary | Summary of Care ---
Author Name Unknown Organization [facility] Address [address] [place] [address] Phone [phone] Care Team Providers Care Cycle Director Name Role Phone Lauryn Grove MD Primary Care Provide r Reason for Referral * Evaluate & Treat - Unlimited Visits (Within 30 days (routine)) - Pending Review Specialty Diagnoses / Procedures Referred By Mere frausto Referred To Contact Hematology/Oncology / Hematology Oncology Diagnoses Other iron deficiency anemia Denton Fuller MD [address] [place] [address] [place] [id number] Referral ID Status Reason Start Date Expiration Date Visits Requested Visits Authorized [id number] Pending Review Specialty Services Required 4 [phone] Question Answer Referral Priority Within 30 days (routine) Where should this appointment be scheduled? [facility] Reason for Referral Anemia Comments Stated she has iron deficiency, not absorbing iron Reason for Visit * Reason Comments Fatigue Encounter Details Date Type Department Care Team (Late st Contact Info) Description 11/21/2023 12:40 PM EDT Telemedicine Family Medicine [address] [place] [address] Denton Fuller MD [address] [place] [address] [place] [address] Other iron deficiency anemia* Allergies Active Allergy Reactions Criticality Noted Date Comments Diphenhydramine 08/02/2022 Nitrofurantoin High 12/23/2018 Other reaction(s): swelling of face, tongue, eyes documented as of this encounter (statuses as of 11/21/2023) Medications Medication Sig Dispensed Refills Start Date [...] as of this encounter (statuses as of 11/21/2023) Active Problems Problem Noted Date Diagnosed Date Food insecurity 11/19/2022 Overview: Per [facility] Protocol Anxiety 08/02/2022 Current mild episode of sofía r depressive disorder without prior episode 08/02/2022 Pityriasis rosea 08/02/2022 documented as of this encounter (statuses as of 11/21/2023) Immunizations No known immunizationsdocumented as of this [...] as of this encounter Progress Notes * Denton Fuller MD - 11/21/2023 12:43 PM EDT Patient location: in a car driving down the road. I was in a hospital or clinic location. After connecting through [facility], patient was verified with two unique identifiers. Patient (or authorized legal registered representative) was then informed that this was a Telemedicine visit and being conducted confidentially over secure lines. Methods to assure confidentiality were taken. Patient acknowledged consent and understanding of privacy and security of the Telemedicine visit. The patient agreed to participate. Anna says she is really anemic and taking iron and Vitamin C are not helping. She is tired, falls asleep and is cold. She was just diagnosed with chlamydia, but says that got treated. She says previously she was told she does not absorb the iron. Patient Active Problem List Diagnosis Anxiety Current mild episode of major depressive disorder without prior episode (HCC) Pityriasis rosea Food insecurity Past Medical History: Diagnosis Date Bacterial vaginosis 12/05/2022 Chlamydia infection 11/18/2023 DNA probe Generalized anxiety disorder No past surgical history on file. Review of patient's allergies indicates: Allergen Reactions Nitrofurantoin Other reaction(s): swelling of face, tongue, eyes Diphenhydramine Social History Socioeconomic History Marital status: Single Spouse name: Not on file Number of children: Not on file Years of education: Not on file Highest education level: Not on file Occupational History Not on file Tobacco Use Smoking status: Never Smokeless tobacco: Never Substance and Sexual Activity Alcohol use: Yes Drug use: Never Sexual activity: Not on file Other Topics Concern Not on file Social History Narrative Not on file Social Determinants of Health Financial Resource Strain: Low Risk (10/24/2022) Financial Resource Strain Do you have any trouble paying for your medications, or do you think you might in the future? (Adult - for ages 18 years and over): No Does your family have trouble paying for medicine? (Household - for ages 0-17 years): Not on file Food Insecurity: No Food Insecurity (10/24/2022) Food Insecurity Do you need food for this week? (Adult - for ages 18 years and over): No Are you able to get enough food for your family? (Household - for ages 0-17 years): Not on file Does your family need food this week? (Household - for ages 0-17 years): Not on file Do you always have enough food for your family? (Household - for ages 0-17 years): Not on file Recent Concern: Food Insecurity - Food Insecurity Present (10/24/2022) Hunger Vital Sign Worried About Running Out of Food in the Last Year: Sometimes true Ran Out of Food in the Last Year: Sometimes true Transportation Needs: No Transportation Needs (10/24/2022) Transportation Needs Do you have trouble getting a ride to medical visits or work? (Adult - for ages 18 years and over):Never True Does your family have a hard time getting a ride to doctors visits? (Household - for ages 0-17 years): Not on file Has lack of transportation kept you from medical appointments, meetings, work, or from getting things needed for daily living? Check all that apply. (Adult - for ages 18 years and over): Not on file Do you (or your family) have trouble finding or paying for a ride (transportation)? (Household - for ages 0-17 years): Not on file Social Connections: Unknown (10/25/2023) Social Connections How often do you feel lonely or isolated from those around you? (Adult - for ages 18 years and over): Not on file Housing Stability: Low Risk (10/24/2022) Housing Stability Do you currently live in a jail or have no steady place to sleep at night? (Adult - for ages 18 years and over): No Do you think you are at risk of becoming homeless? (Adult - for ages 18 years and over): No Does your family worry about paying for your home or becoming homeless? (Household - for ages 0-17 years): Not on file Are you homeless or worried that you might be in the future? (Adult - for ages 18 years and over): Not on file Are you (or your family) homeless or worried that you might be in the future? (Household - for ages0-17 years): Not on file Current Outpatient Medications Medication Sig Dispense Refill Mirena (52 MG) 20 MCG/DAY Intrauterine Intrauterine Device (Levonorgestrel) MIRENA (52 MG) 20 MCG/DAY IUD Dicyclomine HCl 10 MG Oral Capsule (Bentyl) Take 1 Capsule by mouth 2 times a day as needed for Pain or Gas. For abdominal pain 40 Capsule 2 Citalopram Hydrobromide 10 MG Oral Tablet (CeleXA) Take 1 Tablet by mouth in the morning. 30 [id number] No current facility-administered medications for this visit. CBC Results: Results for orders placed or performed in visit on 08/02/22 CBC Result Value Ref Range WBC 8.72 4.00 - 10.80 K/uL RBC 4.49 3.85 - 5.15 M/uL HGB 13.5 12.0 - 15.3 g/dL HCT 41.4 36.0 - 45.2 % MCV 92.2 81.5 - 97.5 fL MCH 30.1 27.0 - 34.0 pg MCHC 32.6 32.0 - 36.0 g/dL RDW 12.3 11.5 - 15.5 % PLT 342 140 - 400 K/uL MPV 10.8 6.6 - 11.1 fL nRBCs 0 <=0 /100 WBCs . Lab Results Component Value Date/Time TSH - [facility] 2.07 10/25/2022 04:01 PM TSH - OUTSIDE LAB 1.880 03/16/2023 12:00 AM A: Other iron deficiency anemia (Primary) - HEMATOLOGY/ONCOLOGY REFERRAL OP - IRON; Future; Expected date: 11/21/2023 - CBC; Future; Expected date: 11/21/2023 - VITAMIN B12; Future; Expected date: 11/21/2023 - FOLIC ACID; Future; Expected date: 11/21/2023 Follow Up: Return if symptoms worsen or fail to improve. documented in this encounter Plan of Treatment Scheduled Orders Name Type Priority Associated Diagnoses Orde r Schedule IRON Lab Routine Other iron deficiency anemia Expected: 11/21/2023, Expires: 11/20/2024 CBC Lab Routine Other iron deficiency anemia Expected: 11/21/2023 (Approximate), Expires: 11/20/2024 VITAMIN B12 Lab Routine Other iron deficiency anemia Expected: 11/21/2023 (Approximate), Expires: 11/20/2024 FOLIC ACID Lab Routine Other iron deficiency anemia Expected: 11/21/2023 (Approximate), Expires: 11/20/2024 Scheduled Referrals Name Type Priority Associated Diagnoses Orde r Schedule HEMATOLOGY/ONCOLOGY REFERRAL OP Referral Within 30 days (routine) Other iron deficiency anemia Ordered: 11/21/2023 Health Maintenance Due Date Last Done Comments [...] encounter Visit Diagnoses Diagnosis Other iron deficiency anemia- Primary documented in this encounter Care Teams Cycle Director Relationship Specialty Start Date End Date Lauryn Grove MD [address] [place] [address] [place] [phone] PCP - General Family Medicine 08/03/22 documented as of this encounter
--- OUTSIDE RECORDS SUMMARY | 2023-12-28 12:12 | External Medical Summary ---
Author Name Unknown Address Unknown Organization K01:[facility] - [address] [place] [address] Laboratory Report Ordering Provider Test Date Status SHAUN BINGHAM 11/27/2023 12:01:03 Final Observation Date Value Abnormality Reference (Units ) Status Vitamin B12 11/27/2023 12:01:03 [phone] (pg/mL) Final Performing Location [facility] [address] [facility] [address] [place] [address]
--- OUTSIDE RECORDS SUMMARY | 2023-12-28 12:12 | External Medical Summary | Summary of Care ---
Author Name Unknown Organization [facility] Address [address] [facility] [address] Phone [phone] Care Team Providers Care Machine Clothing Replacer Name Role Phone Lauryn Grove MD Primary Care Provide r Reason for Visit * Reason Onset Date Comments Referral 11/22/2023 SP 30-Day Encounter Details Date Type Department Care Team (Late st Contact Info) Description 11/22/2023 New Patient Triage (FISHER REEF NET USE ONLY) Hematology/Oncology [facility] [address] [place] [address] Marleny Corey CRNP [address] [facility] [place] [address] Referral (SP [...] referral?: Other [place] Enter order ID here: [id number] Specialty specific documentation: Hematology/Oncology NEW PATIENT - [...] Description 11/27/2023 12:00 PM EDT Laboratory Laboratory [address] [place] [phone] [address] [place] [address] Scheduled Orders Name Type Priority Associated Diagnoses [...] organs documented in this encounter Care Teams Machine Clothing Replacer Relationship Specialty Start Date End Date Lauryn Grove MD [address] [place] [address] [place] [phone] PCP - General Family Medicine 08/03/22 documented as of this encounter
--- OUTSIDE RECORDS SUMMARY | 2023-12-28 12:12 | External Medical Summary | Summary of Care ---
Author Name Unknown Organization [facility] Address [address] [facility] [place] [address] Phone [phone] Care Team Providers Care Vegetable Preparer Name Role Phone Lauryn Grove MD Primary Care Provide r Reason for Visit * Reason Onset Date Comments Encounter Created in Error 11/21/2023 Encounter Details Date Type Department Care Team (Late st Contact Info) Description 11/21/2023 Telephone Family [address] [place] [address] Lauryn Grove MD [address] [place] [address] [place] [phone] Encounter Created in Error Allergies Active Allergy Reactions Criticality Noted Date [...] encounter Miscellaneous Notes * Telephone Encounter - Radha Singh OSA - 11/21/2023 11:42 AM EDT error documented in this encounter Plan of Treatment Upcoming Encounters Date Type Department Care Team (Late st Contact Info) Description 11/21/2023 12:40 PM EDT Telemedicine Family Medicine [address] [address] Denton Fuller MD [address] [place] [address] [place] [address] Health Maintenance Due Date Last Done Comments DTap/Tdap Vaccines (6 - Tdap) 07/28/2011 10/17/2005, 10/31/2001, 04/03/2001, Additional history exists Depression Monitoring 2012 HIV Screening 07/28/2015 Hepatitis C Screening 2018 Pap Smear 2021 COVID-19 Vaccine ( season) 2023 Influenza Vaccine (FLU shot) (#1) 2023 Gonorrhea / Chlamydia Screen 11/17/2024 11/18/2023 Hepatitis B Vaccine Completed 10/31/2001, 05/26/2001, 01/20/2001 HPV (Gardasil) Vaccine Completed 4, 09/26/2012, 07/18/2012 MENINGOCOCCAL (MENACTRA/MENVEO) Completed 10/03/2017, 07/18/2012 Pneumococcal Vaccine: Pediatrics (0 to 5 Years) and At-Risk Patients (6 to 64 Years) Aged Out No longer eligible based on patient's age to complete this topic documented as of this encounter Medical Devices Not on filedocumented as of this encounter Care Teams Vegetable Preparer Relationship Specialty Start Date End Date Lauryn Grove MD [address] [place] [address] [place] [address] PCP - General Family Medicine 08/03/22 documented as of this encounter
--- OUTSIDE RECORDS SUMMARY | 2023-12-28 12:12 | External Medical Summary ---
Author Name Unknown Address Unknown Organization K01:LABORATORY [facility] - [address] [place] [address] Laboratory Report Ordering Provider Test Date Status [place] 11/27/2023 12:01:03 Final Observation Date Value Abnormality Reference (Units ) Status WBC, Total 11/27/2023 12:01:03 6.06 4.00-10.80 (K/uL) Final RBC 11/27/2023 12:01:03 4.35 3.85-5.15 (M/uL) Final Hemoglobin 11/27/2023 12:01:03 13.4 12.0-15.3 (g/dL) Final HCT 11/27/2023 12:01:03 40.8 36.0-45.2 (%) Final MCV 11/27/2023 12:01:03 93.8 81.5-97.5 (fL) Final MCH 11/27/2023 12:01:03 30.8 27.0-34.0 (pg) Final MCHC 11/27/2023 12:01:03 32.8 32.0-36.0 (g/dL) Final RDW 11/27/2023 12:01:03 11.7 11.5-15.5 (%) Final Platelets 11/27/2023 12:01:03 316 140-400 (K/uL) Final MPV 11/27/2023 12:01:03 10.6 6.6-11.1 (fL) Final Nucleated erythrocytes/100 leukocytes [Ratio] in Blood by Automated count 11/27/2023 12:01:03 0 <=0 (/100 WBCs) Final Performing Location [facility] [address] [facility] [place] [address]
--- OUTSIDE RECORDS SUMMARY | 2023-12-28 12:12 | External Medical Summary | Summary of Care ---
Author Name Unknown Organization [facility] Address [address] [facility] [address] Phone [phone] Care Team Providers Care Safety Sitter Name Role Phone Lauryn Grove MD Primary Care Provide r Reason for Visit * Reason Onset Date Comments Referral 11/22/2023 SP 30-Day Encounter Details Date Type Department Care Team (Late st Contact Info) Description 11/22/2023 New Patient Triage (TRACK LEADER USE ONLY) Hematology/Oncology [facility] [address] [place] [address] Marleny Corey CRNP [address] [facility] [place] [address] Referral (SP 30-Day) Allergies Active Allergy Reactions Criticality Noted Date Comments Diphenhydramine 08/02/2022 Nitrofurantoin High 12/23/2018 Other reaction(s): swelling of face, tongue, eyes documented as of this encounter (statuses as of 11/26/2023) Medications Medication Sig Dispensed Refills Start Date [...] as of this encounter (statuses as of 11/26/2023) Active Problems Problem Noted Date Diagnosed Date Food insecurity 11/19/2022 Overview: Per [facility] Protocol Anxiety 08/02/2022 Current mild episode of sofía r depressive disorder without prior episode 08/02/2022 Pityriasis rosea 08/02/2022 documented as of this encounter (statuses as of 11/26/2023) Immunizations No known immunizationsdocumented as of this [...] Progress Notes * Ivy Arenas LPN - 11/26/2023 1:21 [...] referral?: Other [place] Enter order ID here: [id number] Specialty specific documentation: Hematology/Oncology NEW PATIENT - [...] organs documented in this encounter Care Teams Safety Sitter Relationship Specialty Start Date End Date Lauryn Grove MD [address] [place] [address] [place] [address] PCP - General Family Medicine 08/03/22 documented as of this encounter
--- OUTSIDE RECORDS SUMMARY | 2023-12-28 12:12 | External Medical Summary | Summary of Care ---
Author Name Unknown Organization [facility] Address [address] [facility] [address] Phone [phone] Care Team Providers Care Stock Plan Administrator Name Role Phone Lauryn Grove MD Primary Care Provide r Reason for Visit * Reason Onset Date Comments Referral 11/22/2023 SP 30-Day Encounter Details Date Type Department Care Team (Late st Contact Info) Description 11/22/2023 New Patient Triage (INVENTORY AUDITOR USE ONLY) Hematology/Oncology [facility] [address] [place] [address] Marleny Corey CRNP [address] [facility] [place] [address] Referral (SP 30-Day) [...] Progress Notes * Marleny Corey CRNP - 11/26/2023 12:23 [...] referral?: Other [place] Enter order ID here: [id number] Specialty specific documentation: Hematology/Oncology NEW PATIENT - [...] organs documented in this encounter Care Teams Stock Plan Administrator Relationship Specialty Start Date End Date Lauryn Grove MD [address] [place] [address] [place] [address] PCP - General Family Medicine 08/03/22 documented as of this encounter
--- OUTSIDE RECORDS SUMMARY | 2023-12-28 12:12 | External Medical Summary ---
Author Name Unknown Address Unknown Organization K01:[facility] - [address] [place] [address] Laboratory Report Ordering Provider Test Date Status [place] 11/27/2023 12:01:03 Final Observation Date Value Abnormality Reference (Units ) Status Iron 11/27/2023 12:01:03 94 33-151 (ug /dL) Final Iron-binding capacity 11/27/2023 12:01:03 370 250-425 (ug/dL) Final Transferrin Sat % 11/27/2023 12:01:03 25 15 -55 (%) Final Performing Location [facility] - [address] [place] [address]
--- OUTSIDE RECORDS SUMMARY | 2023-12-28 12:12 | External Medical Summary | Summary of Care ---
Author Name Unknown Organization [facility] Address [address] [facility] [place] [address] Phone [phone] Care Team Providers Care Ticket Taker Ferryboat Name Role Phone Lauryn Grove MD Primary Care Provide r Reason for Visit * Reason Onset Date Comments Medication Refill 09/12/2023 Encounter Details Date Type Department Care Team (Late st Contact Info) Description 09/12/2023 Refill Family Medicine [address] [place] [address] Lauryn Grove MD [address] [place] [address] [place] [phone] Current mild episode of major depressive disorder without prior episode (HCC); Anxiety Allergies Active Allergy Reactions Criticality Noted Date Comments Diphenhydramine 08/02/2022 Nitrofurantoin High 12/23/2018 Other reaction(s): swelling of face, tongue, eyes documented as of this encounter (statuses as of 09/12/2023) Medications Medication Sig Dispensed Refills Start Date End Date Status Mirena (52 MG) 20 MCG/DAY Intrauterine Intrauterine Device (Levonorgestrel) MIRENA (52 MG) 20 MCG/DAY IUD 10/11/2021 Active Dicyclomine HCl 10 MG Oral Capsule (Bentyl)Indication s:Lower abdominal pain,Loose bowel movement Take 1 Capsule by mouth 2 times a day as needed for Pain or Gas. For abdominal pain 40 Capsule 2 10/25/2022 Active Citalopram Hydrobromide 10 MG Oral Tablet (CeleXA)Indication s:Current mild episode of major depressive disorder without prior episode (HCC),Anxiety Take 1 Tablet by mouth in the morning. 30 Tablet 11 09/12/2023 Active Citalopram Hydrobromide 10 MG Oral Tablet (CeleXA)Indication s:Current mild episode of major depressive disorder without prior episode (HCC),Anxiety Take 1 Tablet by mouth in the morning. 30 Tablet 11 01/23/2023 Discontinue d(Refill) documented as of this encounter (statuses as of 09/12/2023) Active Problems Problem Noted Date Diagnosed Date Food insecurity 11/19/2022 Overview: Per [facility] Protocol Anxiety 08/02/2022 Current mild episode of sofía r depressive disorder without prior episode 08/02/2022 Pityriasis rosea 08/02/2022 documented as of this encounter (statuses as of 09/12/2023) Social History Tobacco Use Types Packs/Day Years [...] y our heating, water, or electric bill? No 10/24/2022 Is your family able to pay t he heat, water, or electric bill? (Household - for ages 0-17 years) Not on file 10/24/2022 Does your family have access to good internet? (Household - for ages 0-17 years) Not on file 10/24/2022 Employment Status Answer Date Recorded Are you unemployed or without regular income? Ye s 10/24/2022 Does the household have a re gular source of income? (Household - for ages 0-17 years) Not on file 10/24/2022 Social Connections Answer Date Recorded How often do you feel lonely or isolated from th ose around you? Often 10/24/2022 Financial Resource Strain Answer Date R ecorded [...] 18 years and over) Not on file 3 Are you (or your family) claudia eless [...] encounter Miscellaneous Notes * Telephone Encounter - Uzair Gardner RPh - 09/12/2023 2:15 PM EDTSigned Prescriptions: Disp Refills Citalopram Hydrobromide 10 MG Oral Tablet *30 Tab*11 Sig: Take 1Tablet by mouth in the morning.Authorizing Provider: Guerda [place]OVE User: UZAIR GARDNER * Telephone Encounter - Uzair Gardner RPh - 09/12/2023 2:14 PM EDT Rerouted to new pharmacy as requested. Thank you, Uzair Gardner, PharmD Clinical Pharmacist [facility] 09/12/23 2:15 PM [phone] * Telephone Encounter - Jaz Ren, mine exploration engineer - 09/12/2023 2:10 PM EDT Patient requesting high priority states she is out of her medication Please reroute Rx [id number] [address] [place] Pending Prescriptions: Disp Refills Citalopram Hydrobromide 10 MG Oral Tablet*30 Tab*11 Sig: Take 1 Tablet by mouth in the morning. Last Visit: 10/25/2022 (in office), Visit date not found (telemedicine) Visit date not found If no future appointments scheduled, and last appointment is greater than a year ago, please schedule patient for a follow-up appointment Last date the medication was ordered: 01/23/2023 Patient Phone Numbers Labs: Lab Results Component Value Date/Time CREAT 0.68 03/16/2023 12:00 AM POTASSIUM 4.1 10/25/2022 04:01 PM TSH 1.880 03/16/2023 12:00 AM ALT 17 10/25/2022 04:01 PM documented in this encounter Plan of Treatment Health Maintenance Due Date Last Done Comments DTaP,Tdap,and Td Vaccines (6 - Tdap) 07/28/2011 10/17/2005, 10/31/2001, 04/03/2001, Additional history exists Depression Monitoring 2012 Gonorrhea / Chlamydia Screen 07/28/2015 HIV Screening 07/28/2015 Hepatitis C Screening 2018 Pap Smear 2021 COVID-19 Vaccine ( season) 2022 Influenza Vaccine (FLU shot) (#1) 2023 Hepatitis B Vaccine Completed 10/31/2001, 05/26/2001, 01/20/2001 HPV (Gardasil) Vaccine Completed 4, 09/26/2012, 07/18/2012 MENINGOCOCCAL (MENACTRA/MENVEO) Completed 10/03/2017, 07/18/2012 Pneumococcal Vaccine: Pediatrics (0 to 5 Years) and At-Risk Patients (6 to 64 Years) Aged Out No longer eligible based on patient's age to complete this topic documented as of this encounter Medical Devices Not on filedocumented as of this encounter Visit Diagnoses Diagnosis Current mild episode of major depressive disorder without prior episode (HCC) Anxiety Anxiety state, unspecified documented in this encounter Care Teams Ticket Taker Ferryboat Relationship Specialty Start Date End Date Lauryn Grove MD [address] [place] [address] [place] [address] PCP - General Family Medicine 08/03/22 documented as of this encounter
--- OUTSIDE RECORDS SUMMARY | 2023-12-28 12:12 | External Medical Summary | Summary of Care ---
Author Name Unknown Organization [facility] Address [address] [place] [address] Phone [phone] Care Team Providers Care Diamond Powder Technician Name Role Phone Lauryn Grove MD Primary Care Provide r Reason for Referral * Evaluate & Treat - Unlimited Visits (Within 30 days (routine)) - Pending Review Specialty Diagnoses / Procedures Referred By Mere frausto Referred To Contact Hematology/Oncology / Hematology Oncology Diagnoses Other iron deficiency anemia Denton Fuller MD [address] [place] [address] [place] [id number] Referral ID Status Reason Start Date Expiration Date Visits Requested Visits Authorized [id number] Pending Review Specialty Services Required 4 [phone] Question Answer Referral Priority Within 30 days (routine) Where should this appointment be scheduled? [facility] Reason for Referral Anemia Comments Stated she has iron deficiency, not absorbing iron Reason for Visit * Reason Comments Fatigue Encounter Details Date Type Department Care Team (Late st Contact Info) Description 11/21/2023 12:40 PM EDT Telemedicine Family Medicine [address] [place] [address] Denton Fuller MD [address] [place] [address] [place] [phone] Other iron deficiency anemia* Allergies Active Allergy [...] hospital or clinic location. After connecting through [facility], patient was verified with two unique identifiers. Patient (or authorized legal outbound sales representative) was then informed that this was [...] Stability Do you currently live in a [facility] or have no steady place to sleep [...] Tablet by mouth in the morning. 30 [id number] No current facility-administered medications for this visit. [...] 10/31/2001, 05/26/2001, 01/20/2001 HPV (Gardasil) Vaccine Completed , 09/26/2012, 07/18/2012 [...] Primary documented in this encounter Care Teams Diamond Powder Technician Relationship Specialty Start Date End Date Lauryn Grove MD [address] [place] [address] [place] [phone] PCP - General Family Medicine 08/03/22 documented as of this encounter
--- OUTSIDE RECORDS SUMMARY | 2023-12-28 12:12 | External Medical Summary | Summary of Care ---
Author Name Unknown Organization [facility] Address [address] [facility] [place] [address] Phone [phone] Care Team Providers Care Operations Executive Name Role Phone Lauryn Grove MD Primary Care Provide r Encounter Details Date Type Department Care Team (Late st Contact Info) Description 11/25/2023 Orders Only PATIENT PORTAL DO NOT DELETE THIS DEPT USED BY [place] [id number] Allergies Active Allergy Reactions Criticality Noted Date Comments Diphenhydramine 08/02/2022 Nitrofurantoin High 12/23/2018 Other reaction(s): swelling of face, tongue, eyes documented as of this encounter (statuses as of 11/25/2023) Medications Medication Sig Dispensed Refills Start Date [...] as of this encounter (statuses as of 11/25/2023) Active Problems Problem Noted Date Diagnosed Date Food insecurity 11/19/2022 Overview: Per [facility] Protocol Anxiety 08/02/2022 Current mild episode of sofía r depressive disorder without prior episode 08/02/2022 Pityriasis rosea 08/02/2022 documented as of this encounter (statuses as of 11/25/2023) Immunizations No known immunizationsdocumented as of this [...] filedocumented as of this encounter Care Teams Operations Executive Relationship Specialty Start Date End Date Lauryn Grove MD [address] [place] [address] [place] [phone] PCP - General Family Medicine 08/03/22 documented as of this encounter
--- OUTSIDE RECORDS SUMMARY | 2023-12-28 12:12 | External Medical Summary | Summary of Care ---
Author Name Unknown Organization [facility] [address] [facility] [address] Phone [phone] Care Team Providers Care Roving Weight Gauger Name Role Phone Lauryn Grove MD Primary Care Provide r Reason for Visit * Reason Onset Date Comments Referral 11/22/2023 SP 30-Day Encounter Details Date Type Department Care Team (Late st Contact Info) Description 11/22/2023 New Patient Triage (TELEVISION OPERATOR USE ONLY) Hematology/Oncology [facility] [address] [place] [address] Marleny Corey CRNP [address] [facility] [place] [phone] Referral (SP 30-Day) Allergies [...] Progress Notes * Ivy Arenas LPN - 11/22/2023 10:24 AM EDT New Patient Triage What is the diagnosis/reason for referral?: Other [place] Enter order ID here: [id number] Specialty specific documentation: Hematology/Oncology NEW PATIENT - [...] 11/21/2023, Dr. Beltre documented in this encounter Plan of Treatment [...] filedocumented as of this encounter Care Teams Roving Weight Gauger Relationship Specialty Start Date End Date Lauryn Grove MD [address] [place] [address] [place] [phone] PCP - General Family Medicine 08/03/22 documented as of this encounter
--- OUTSIDE RECORDS SUMMARY | 2023-12-28 12:12 | External Medical Summary | Summary of Care ---
Author Name Unknown Organization [facility] Address [address] [facility] [place] [address] Phone [phone] Care Team Providers Care Furnace Combustion Tester Name Role Phone Lauryn Grove MD Primary Care Provide r Encounter Details Date Type Department Care Team (Late st Contact Info) Description 11/18/2023 Result Scan Unspecified Department <No scans attached> [...] Date/Time Associated Diagnosis Comments OUTSIDE LAB RESULTS 11/18/2023 documented in this encounter Results * OUTSIDE LAB RESULTS (11/18/2023) 11/18/2023 No Physician Data Unknown LABORATORY documented in this encounter Care Teams Furnace Combustion Tester Relationship Specialty Start Date End Date Lauryn Grove MD [address] [place] [address] [place] [phone] PCP - General Family Medicine 08/03/22 documented as of this encounter
--- OUTSIDE RECORDS SUMMARY | 2023-12-28 12:12 | External Medical Summary | Summary of Care ---
Author Name Unknown Organization [facility] Address [address] [facility] [place] [address] Phone [phone] Care Team Providers Care Pocketed Spring Assembler Name Role Phone Lauryn Grove MD Primary Care Provide r Reason for Referral * Medication Prior Authorization - Closed Specialty Diagnoses / Procedures Referred By Contac t Referred To Contact Diagnoses Current mild episode of major depressive disorder without prior episode (HCC) Anxiety Lauryn Grove MD [address] [place] [address] [place] [id number] Referral ID Status Reason Start Date Expiration Date Visits Re quested Visits Authorized [id number] Closed 999 999 Reason for Visit * Reason Onset Date Comments Medication Refill 10/09/2023 Encounter Details Date Type Department Care Team (Late st Contact Info) Description 10/09/2023 Refill Family Medicine [address] [place] [phone] Lauryn Grove MD [address] [place] [address] [place] [phone] Current mild episode of major depressive disorder without prior episode (HCC); Anxiety Allergies Active Allergy Reactions Criticality Noted Date Comments Diphenhydramine 08/02/2022 Nitrofurantoin High 12/23/2018 Other reaction(s): swelling of face, tongue, eyes documented as of this encounter (statuses as of 10/09/2023) Medications Medication Sig Dispensed Refills Start Date [...] the morning. 30 Tablet 11 10/09/2023 Active Citalopram Hydrobromide 10 MG Oral Tablet (CeleXA)Indication s:Current mild episode of major depressive disorder without prior episode (HCC),Anxiety Take 1 Tablet by mouth in the morning. 30 Tablet 11 09/12/2023 Discontinue d(Refill) documented as of this encounter (statuses as of 10/09/2023) Active Problems Problem Noted Date Diagnosed Date Food insecurity 11/19/2022 Overview: Per [facility] Protocol Anxiety 08/02/2022 Current mild episode of sofía r depressive disorder without prior episode 08/02/2022 Pityriasis rosea 08/02/2022 documented as of this encounter (statuses as of 10/09/2023) Social History Tobacco Use Types Packs/Day Years [...] s 10/24/2022 Does the household have a veterans affairs [facility] healthcare systemr source of income? (Household - for ages [...] encounter Miscellaneous Notes * Telephone Encounter - Lauryn Grove MD - 10/09/2023 3:14 PM EDT Signed Prescriptions: Disp Refills Citalopram Hydrobromide 10 MG Oral Tablet *30 Tab*11 Sig: Take 1 Tablet by mouth in the morning. Authorizing Provider: LAURYN GROVE * Telephone Encounter - Grace Faith CMA - 10/09/2023 3:12 PM EDTPending Prescriptions: Disp Refills Citalopram Hydrobromide 10 MG Oral Tablet *30 Tab*11 Sig: Take 1 Tablet by mouth in the morning. * Telephone Encounter - Kimberly Smith OSA - 10/09/2023 2:55 PM EDT Did you pend patient's preferred pharmacy and medication before forwarding?yes Pharmacy: [id number] [facility] Pending Prescriptions: Disp Refills Citalopram Hydrobromide 10 MG Oral Tablet*30 Tab*11 Sig: Take 1 Tablet by mouth in the morning. Last Visit: 10/25/2022 (in office), Visit date not found (telemedicine) Next Visit: Visit date not found If no future appointments scheduled, and last appointment is greater than a year ago, please schedule patient for a follow-up appointment Last date the medication was ordered: 8 Is this request for a controlled substance?No 90 day refill request Urine Drug Screen:No results found for this or any previous visit. Patient Phone Numbers Labs: Lab Results Component [...] unspecified documented in this encounter Care Teams Pocketed Spring Assembler Relationship Specialty Start Date End Date Lauryn Grove MD [address] [place] [address] [place] [phone] PCP - General Family Medicine 08/03/22 documented as of this encounter
--- OUTSIDE RECORDS SUMMARY | 2023-12-28 12:12 | External Medical Summary | Summary of Care ---
Author Name Unknown Organization [facility] Address [address] [facility] [place] [address] Phone [phone] Care Team Providers Care Clinical Services Manager Name Role Phone Lauryn Grove MD Primary Care Provide r Encounter Details Date Type Department Care Team (Late st Contact Info) Description 11/20/2023 Orders Only Family Medicine [address] [place] [phone] Lauryn Grove MD [address] [place] [address] [place] [phone] Allergies Active Allergy Reactions Criticality Noted Date Comments Diphenhydramine 08/02/2022 Nitrofurantoin High 12/23/2018 Other reaction(s): swelling of face, tongue, eyes documented as of this encounter (statuses as of 11/20/2023) Medications Medication Sig Dispensed Refills Start Date [...] as of this encounter (statuses as of 11/20/2023) Active Problems Problem Noted Date Diagnosed Date Food insecurity 11/19/2022 Overview: Per [facility] Protocol Anxiety 08/02/2022 Current mild episode of sofía r depressive disorder without prior episode 08/02/2022 Pityriasis rosea 08/02/2022 documented as of this encounter (statuses as of 11/20/2023) Social History Tobacco Use Types Packs/Day Years [...] shot) (#1) 2023 Gonorrhea / Chlamydia Screen 11/19/2024 11/18/2023 Hepatitis B Vaccine Completed 10/31/2001, 05/26/2001, [...] Name Priority Date/Time Associated Diagnosis Comments OUTSIDE LAB-GC/CHLAMYDIA COMMENT Routine 11/18/2023 documented in this encounter Results * OUTSIDE LAB-GC/CHLAMYDIA COMMENT (11/18/2023) 11/18/2023 [facility] OUTSIDE LAB (SEE SCANNED REPORT) documented in this encounter Care Teams Clinical Services Manager Relationship Specialty Start Date End Date Lauryn Grove MD [address] [place] [address] [place] [phone] PCP - General Family Medicine 08/03/22 documented as of this encounter
--- OUTSIDE RECORDS SUMMARY | 2023-12-28 12:12 | External Medical Summary | Summary of Care ---
Author Name Unknown Organization [facility] Address [address] [facility] [address] Phone [phone] Care Team Providers Care Manager Validation Name Role Phone Lauryn Grove MD Primary Care Provide r Reason for Visit * Reason Onset Date Comments Appointment 11/21/2023 HEM/ONCOLOGY Encounter Details Date Type Department Care Team (Late st Contact Info) Description 11/21/2023 Telephone Family Medicine [address] [place] [address] Denton Fuller MD [address] [place] [address] [place] [address] Appointment (HEM/ONCOLOGY) Allergies Active Allergy [...] encounter Miscellaneous Notes * Telephone Encounter - Yas Cullen OSA - 11/22/2023 8:54 AM EDT HEMATOLOGY/ONCOLOGY REFERRAL OP Status: Needs Scheduling Requested appt date: Authorizing: Denton Fuller MD in [facility] Referral: [id number] (Pending Review) Priority: Within 30 days (routine) [...] filedocumented as of this encounter Care Teams Manager Validation Relationship Specialty Start Date End Date Lauryn Grove MD [address] [place] [address] [place] [phone] PCP - General Family Medicine 08/03/22 documented as of this encounter
--- OUTSIDE RECORDS SUMMARY | 2023-12-28 12:12 | External Medical Summary ---
Author Name Unknown Address Unknown Organization K01:[facility] - [address] [place] [address] Laboratory Report Ordering Provider Test Date Status SHAUN BINGHAM 11/27/2023 12:01:03 Final Observation Date Value Abnormality Reference (Units ) Status Folic Acid 11/27/2023 12:01:03 12.6 >4.5 (ng/ mL) Final Performing Location [facility] - [address] [place] [address]
--- OUTSIDE RECORDS SUMMARY | 2023-12-28 12:12 | External Medical Summary ---
Author Name Unknown Address Unknown Organization K01:[facility] [address] [facility] [place] [address] Laboratory Report Ordering Provider Test Date Status [place] 11/27/2023 12:01:03 Final Observation Date Value Abnormality Reference (Units ) Status SYNC LEUKOCYTES IN BLOOD BY AUTOMATED COUNT 11/27/2023 12:01:03 6.06 4.00-10.80 (K/uL) Final Segs 11/27/2023 12:01:03 64.5 40.0-75.0 (%) Final Lymphs % 11/27/2023 12:01:03 29.5 18.0-42.0 (%) Final Monos 11/27/2023 12:01:03 3.1 1.0-11.0 (%) Final Eosinophils 11/27/2023 12:01:03 2.0 0.0-6.0 (%) Final Basos 11/27/2023 12:01:03 0.7 0.0-2.0 (%) Final Immature Granulocyte, Percent 11/27/2023 12:01:03 0.2 0.0-2.0 (%) Final Absolute Segs 11/27/2023 12:01:03 3.91 1.80-7.70 (K/uL) Final Lymphs, absolute 11/27/2023 12:01:03 1.79 1.00-4.80 (K/ul) Final Monos, Abs 11/27/2023 12:01:03 0.19 0.00-1.10 (K/uL) Final Eos, Abs 11/27/2023 12:01:03 0.12 0.00-0.70 (K/uL) Final Basos, Abs 11/27/2023 12:01:03 0.04 0.00-0.20 (K/uL) Final Immature Granulocytes, Number 11/27/2023 12:01:03 0.01 0.00-0.20 (K/uL) Final Performing Location LAB[facility]ATORY [facility] - [address] [facility] [address]
--- OUTSIDE RECORDS SUMMARY | 2023-12-28 12:12 | External Medical Summary | Summary of Care ---
Author Name Unknown Organization [facility] Address [address] [facility] [place] [address] Phone [phone] Care Team Providers Care Loft Patternmaker Name Role Phone Lauryn Grove MD Primary Care Provide r Encounter Details Date Type Department Care Team (Late st Contact Info) Description 10/23/2023 Result Scan Unspecified Department <No scans attached> Allergies Active Allergy Reactions Criticality Noted Date Comments Diphenhydramine 08/02/2022 Nitrofurantoin High 12/23/2018 Other reaction(s): swelling of face, tongue, eyes documented as of this encounter (statuses as of 10/25/2023) Medications Medication Sig Dispensed Refills Start Date [...] as of this encounter (statuses as of 10/25/2023) Active Problems Problem Noted Date Diagnosed Date Food insecurity 11/19/2022 Overview: Per [facility] Protocol Anxiety 08/02/2022 Current mild episode of sofía r depressive disorder without prior episode 08/02/2022 Pityriasis rosea 08/02/2022 documented as of this encounter (statuses as of 10/25/2023) Social History Tobacco Use Types Packs/Day Years [...] 2023 Influenza Vaccine (FLU shot) (#1) 2023 Hepatitis [...] Date/Time Associated Diagnosis Comments OUTSIDE LAB RESULTS 10/23/2023 documented in this encounter Results * OUTSIDE LAB RESULTS (10/23/2023) 10/23/2023 No Physician Data Unknown LABORATORY documented in this encounter Care Teams Loft Patternmaker Relationship Specialty Start Date End Date Lauryn Grove MD [address] [place] [address] [place] [phone] PCP - General Family Medicine 08/03/22 documented as of this encounter
[2023-12-28] MEDS: SODIUM CHLORIDE 0.9% 1,000 ML IV SCH (12:21)
[2023-12-28] MEDS: bisacodyL 10 MG SUPP PR SCH (12:27)
--- NOTE | 2023-12-28 14:22 | Ultrasound Report ---
EXAMINATION: Pelvic ultrasound CLINICAL HISTORY: Acute lower abdominal pain PRIORS: CT abdomen 12/28/2023 TECHNIQUE: Transabdominal followed by transvaginal pelvic ultrasound was performed with grayscale and color Doppler imaging. PRIORS: None FINDINGS: The uterus is normal in size and configuration measuring 9.4 x 3.6 x 6.3 cm. Endometrial cavity contains a moderate amount of fluid and echogenic material, likely representing blood products. No vascularity within the endometrial cavity. The endometrial cavity measures 9.7 mm. The ovaries are normal in size and configuration. Normal blood flow demonstrated in both ovaries. No free fluid in the pelvis. IMPRESSION: 1. No sonographic evidence of an acute pelvic abnormality. 2. Moderate amount of fluid and echogenic contents within the endometrial cavity, likely representing blood products, with no vascularity. No free fluid in the pelvis. Electronically signed by Jaz Troncoso 12-28-2023 2:21 PM
[2023-12-28 16:18] LABS: BUN Creatinine Ratio 8.2 (10-20); Calcium 8.8 mg/dl (8.6-10.3); Creatinine Clr Calc Pharmacy 143.6 ml/min; Potassium 4.2 mmol/L (3.5-5.1)
[2023-12-28 20:13] LABS: Hematocrit (blood only) 35.7 % (37.0-47.0); Hemoglobin 11.8 g/dl (12.0-16.0)
[2023-12-28] MEDS ORDERED: PANTOprazole 40 MG/10 ML SYR IV SCH (21:00)
[2023-12-29] MEDS: oxyCODONE HCL IR 5 MG TAB (IMMEDIATE RELEASE) PO PRN (06:41)
[2023-12-29 08:32] LABS: Hematocrit (blood only) 34.9 % (37.0-47.0); Hemoglobin 11.6 g/dl (12.0-16.0); Mean Corpuscular Hemoglobin 30.5 pg (25.0-34.0); Mean Corpuscular Hgb Conc 33.2 g/dL (32.0-36.0); Mean Corpuscular Volume 91.8 fL (80.0-100.0); Mean Platelet Volume 10.1 fL (9.4-12.4); Platelet Count 288 K/uL (130-400); RDW Standard Deviation 40.7 fL (36.4-46.3); White Blood Count 5.91 K/ul (4.8-10.8)
[2023-12-29 08:58] LABS: BUN Creatinine Ratio 13.1 (10-20); Calcium 9.3 mg/dl (8.6-10.3); Creatinine Clr Calc Pharmacy 143.7 ml/min; Magnesium 1.7 mg/dl (1.7-2.4); Phosphorus 3.1 mg/dl (2.5-4.9)
--- NOTE | 2023-12-29 09:06 | Gastrointestinal Consultation ---
Date of Consultation December 29, 2023 Assessment & Plan (1) Diffuse abdominal pain: Pleasant young woman with abdominal pain of abrupt onset. My best guess as to what is going on is that she had some type of infectious enteritis and this is the manifestation. She did have on bloody stool prior to this occurring. She is young to have ischemic gut and there is not much else to explain such an abrupt onset. She had "achy legs" with this which would go along with an infectious etiology. I don't think urgent colonoscopy will be of benefit at this time but could be considered at some point in the future. I suspect she will continue to improve over the next 24-48 hours. History of Present Illness Reason for Consultation: abdominal pain Attending Physician: Radames Harvey MD History of Present Illness 23 year old female who says she had some blood with bowel movement on . Saturday night she was out in [place] at a bar and developed "severe" abdominal pain that went into her lungs. She could not even walk with the pain. EMS was called and she came to ED. She doesn't think she ate anything that was bad. She only had "a few drinks" by then. She does not do any illicit drugs. She takes no medication. Since admit she has not had a bowel movement but she is passing gas. Her pain is better than it was on admit. She has not had anything like this before. CT scan showed distended colon but no wall abnormalities. Allergies Allergy/AdvReac Type Severity Reaction Status Date / Time diphenhydramine Allergy Swelling Verified 12/28/23 08:42 [From Benadryl] of Lip/Tongue/Throat nitrofurantoin Allergy Swelling Verified 12/28/23 08:42 of Lip/Tongue/Throat Home Medications Medication Instructions Recorded Confirmed Type multivitamin 1 tab PO DAILY 12/28/23 12/28/23 History Patient History Social History Smoking Status: Never smoker Hx Alcohol Use: Yes Alcohol type: hard liquor Hx Substance Use: No Preferred Language: [place]ib[place]ian Communication Ability: Effective Cloth Coverer Required: No Beliefs That Will Affect Care: None Current Living Situation: Parent and Family Feels Safe at Home: Yes Safety Concerns: Feels Safe At This Time Review of Systems Review of Systems: All systems reviewed & are unremarkable except as noted in HPI & below Physical Exam Physical Exam: She looks well Constitutional: WD/WN, vitals as above Neck: trachea midline, no thyromegaly Respiratory: normal respiratory effort, lungs clear to auscultation Cardiovascular: RRR, no murmur, no edema Gastrointestinal (Abdomen): Inspection/Auscultation: abdomen normal to inspection and normal bowel sounds; abdomen not distended Percussion/Palpation: + abdomen tender (upper abdomen) and abdomen soft; no hepatosplenomegaly Musculoskeletal: Extremities: extremities normal to inspection Results & Data Vital Signs (Past 12 Hours) Vital Signs Temp Pulse Pulse Resp BP Pulse Ox O2 Del Method 12/29/23 07:52 36.7 C 68 16 116/59 L 97 Room Air 12/29/23 07:00 57 L 12/29/23 02:54 36.6 C 58 L 18 97/62 L 97 Room Air 12/28/23 22:37 36.8 C 96 H 18 111/65 98 Room Air 12/28/23 21:48 56 L Laboratory Results 12/29/23 12/28/23 12/28/23 Range/Units 08:14 19:32 15:27 WBC 5.91 (4.8-10.8) K/ul RBC 3.80 L (4.20-5.40) M/uL Hgb 11.6 L 11.8 L (12.0-16.0) g/dl Hct 34.9 L 35.7 L (37.0-47.0) % MCV 91.8 (80.0-100.0) fL MCH 30.5 (25.0-34.0) pg MCHC 33.2 (32.0-36.0) g/dL RDW Std Deviation 40.7 (36.4-46.3) fL RDW Coeff of Dayana 12.0 (11.5-14.5) % Plt Count 288 (130-400) K/uL MPV 10.1 (9.4-12.4) fL Sodium 140 139 (136-145) mmol/L Potassium 4.0 4.2 D (3.5-5.1) mmol/L Chloride 107 108 H (98-107) mmol/L Carbon Dioxide 23 26 (21-32) mmol/L Anion Gap 10 5 (3-11) BUN 8 5 L (6-23) mg/dl Creatinine 0.61 0.61 (0.6-1.2) mg/dl Est Cr Clr Drug Dosing 143.7 143.6 ml/min eGFR 128.75 128.75 BUN/Creatinine Ratio 13.1 8.2 L (10-20) Glucose 64 L 83 (70-99(Fasting)) mg/dl Calcium 9.3 8.8 (8.6-10.3) mg/dl Phosphorus 3.1 (2.5-4.9) mg/dl Magnesium 1.7 (1.7-2.4) mg/dl Antibody Identification Antibody ID Referred Antigen Identification 12/28/23 12/28/23 12/28/23 Range/Units 12:56 07:17 07:17 WBC (4.8-10.8) K/ul RBC (4.20-5.40) M/uL Hgb (12.0-16.0) g/dl Hct (37.0-47.0) % MCV (80.0-100.0) fL MCH (25.0-34.0) pg MCHC (32.0-36.0) g/dL RDW Std Deviation (36.4-46.3) fL RDW Coeff of Dayana (11.5-14.5) % Plt Count (130-400) K/uL MPV (9.4-12.4) fL Sodium (136-145) mmol/L Potassium (3.5-5.1) mmol/L Chloride (98-107) mmol/L Carbon Dioxide (21-32) mmol/L Anion Gap (3-11) BUN (6-23) mg/dl Creatinine (0.6-1.2) mg/dl Est Cr Clr Drug Dosing ml/min eGFR BUN/Creatinine Ratio (10-20) Glucose (70-99(Fasting)) mg/dl Calcium (8.6-10.3) mg/dl Phosphorus (2.5-4.9) mg/dl Magnesium (1.7-2.4) mg/dl Antibody Identification Anti-D Antibody ID Referred Pending Antigen Identification E Antigen - NEGATIVE C Antigen - NEGATIVE 12/28/23 Range/Units 07:17 WBC (4.8-10.8) K/ul RBC (4.20-5.40) M/uL Hgb (12.0-16.0) g/dl Hct (37.0-47.0) % MCV (80.0-100.0) fL MCH (25.0-34.0) pg MCHC (32.0-36.0) g/dL RDW Std Deviation (36.4-46.3) fL RDW Coeff of Dayana (11.5-14.5) % Plt Count (130-400) K/uL MPV (9.4-12.4) fL Sodium (136-145) mmol/L Potassium (3.5-5.1) mmol/L Chloride (98-107) mmol/L Carbon Dioxide (21-32) mmol/L Anion Gap (3-11) BUN (6-23) mg/dl Creatinine (0.6-1.2) mg/dl Est Cr Clr Drug Dosing ml/min eGFR BUN/Creatinine Ratio (10-20) Glucose (70-99(Fasting)) mg/dl Calcium (8.6-10.3) mg/dl Phosphorus (2.5-4.9) mg/dl Magnesium (1.7-2.4) mg/dl Antibody Identification Ab to Low-Incidence Antigen Antibody ID Referred Antigen Identification Diagnostic Findings Abdomen/Pelvis CT 12/28/23 01:39 EXAM: CT abd pelvis IV con only CLINICAL HISTORY: complaining of severe abdominal pain. Patient states she has been having some abdominal pain already, but was downtown drinking and the pain got severely worse. Patient has hx of endometriosis. Patient has delivered 2 children vaginally as well. Patient states that this pain does not feel similar. No chance of . 94 ml opti 320 PW/GS TECHNIQUE: Contiguous axial images were obtained from the level of the diaphragm to the pubic symphysis without and with intravenous contrast. Coronal and sagittal reconstructions were likewise performed and indicated to increase the sensitivity for detecting clinically relevant pathology. If IV contrast material had not been administered, the likelihood of detecting abnormalities relevant to the patient's condition would have been substantially decreased. CT scan was performed according to ALARA (as low as reasonable achievable). COMPARISON: None. FINDINGS: The visualized lung bases are clear. The liver is normal in size and attenuation. No focal liver lesions are seen. There is no intra or extrahepatic biliary ductal dilatation. Hepatic vasculature is patent. The gallbladder is present. The spleen, pancreas, and adrenal glands are unremarkable. The kidneys are normal in size and attenuation. There is no hydronephrosis or perinephric fat stranding. No renal calculi or renal masses are identified. The ureters are normal in caliber and no ureteral calculi are seen. The bladder is normal in contour. Pelvic viscera are unremarkable. No focal or diffuse bowel wall thickening is identified.. Abdominal and pelvic vasculature is patent. No adenopathy or fluid collections are seen. No aggressive appearing osseous lesions are identified. Large bowel is dilated and shows gaseous distension. IMPRESSION: Large bowel is dilated and shows gaseous distension. No obvious colonic mass lesion/obstructive pathology is seen. Suggested clinical correlation and follow up imaging No other intra-abdominal abnormality seen. Electronically signed by Denton Palomo 12-28-2023 03:09 AM Chest X-Ray 12/28/23 04:27 EXAM: XR chest 1V portable CLINICAL HISTORY: LOW O2 NOT PREG WTW TECHNIQUE: An X-ray image of the chest is obtained in AP projection. COMPARISON: None. FINDINGS: Pulmonary Parenchyma: Lungs are clear bilaterally. No evidence of consolidation, collapse, or focal opacities. No pulmonary nodules are identified. No evidence of pleural effusion or pleural thickening. Heart and Mediastinum: Heart size and shape are normal. No mediastinal widening or masses. No hilar or mediastinal lymphadenopathy. Bony Thorax: Bony thorax appears intact without fractures or deformities. Soft Tissues: Soft tissues overlying the chest wall are unremarkable. IMPRESSION: - Normal chest X-ray. - No acute cardiopulmonary abnormalities are identified. Electronically signed by Ortega Martinez 12-28-2023 05:34 AM Venous Doppler Study 12/28/23 06:05 BILATERAL LOWER EXTREMITY VENOUS DOPPLER HISTORY: Acute pain of the lower legs leg pain COMPARISON STUDY: None. FINDINGS: There is normal compressibility, flow, and augmentation within the bilateral lower extremity deep venous systems. IMPRESSION: No DVT within the right or left lower extremity. ACT 112: Negative or not required by law. Electronically signed by: Shelton Moran M.D. 12/28/2023 10:19 AM Pelvis Ultrasound 12/28/23 11:58 EXAMINATION: Pelvic ultrasound CLINICAL HISTORY: Acute lower abdominal pain PRIORS: CT abdomen 12/28/2023 TECHNIQUE: Transabdominal followed by transvaginal pelvic ultrasound was performed with grayscale and color Doppler imaging. PRIORS: None FINDINGS: The uterus is normal in size and configuration measuring 9.4 x 3.6 x 6.3 cm. Endometrial cavity contains a moderate amount of fluid and echogenic material, likely representing blood products. No vascularity within the endometrial cavity. The endometrial cavity measures 9.7 mm. The ovaries are normal in size and configuration. Normal blood flow demonstrated in both ovaries. No free fluid in the pelvis. IMPRESSION: 1. No sonographic evidence of an acute pelvic abnormality. 2. Moderate amount of fluid and echogenic contents within the endometrial cavity, likely representing blood products, with no vascularity. No free fluid in the pelvis. Electronically signed by Jaz Troncoso 12-28-2023 2:21 PM
[2023-12-29] MEDS: ADVANCED PROBIOTIC 625 MG CAPSULE PO SCH (09:22)
[2023-12-29] MEDS: PANTOprazole 40 MG TAB PO SCH (09:23)
[2023-12-29] MEDS: POLYETHYLENE (MIRALAX) 17 GM PACK PO ONE (09:23)
--- NOTE | 2023-12-29 09:25 | Surgery Progress Note ---
Date of Service December 29, 2023 Assessment & Plan (1) Abdominal pain: Plan: RUQ and lower abdomen dilated colon on CT Patient is passing flatus (2) Back pain: Plan: Right upper and lower (3) Nausea: (4) GERD (gastroesophageal reflux disease): Plan: symptoms of Patient continues on Protonix daily Plan Without leukocytosis, afebrile, K is corrected. Pelvic US completed late morning yesterday was negative May provide warm compresses to areas of back pain to see if this will give some symptomatic relief OOB to chair and ambulation Continues with IV antacid in the form of Protonix 40mg daily, may consider dose increase if needed Recommend RUQ US She may try clear liquids if not nauseous after US Admission and Anticipated Discharge Date Admission Date: December 28, 2023 Subjective Patient was seen and examined this am. She states she was feeling improved until return of back and abdominal pain this am. States she has pain in her upp er and lower back, upper beneath the ribs as well as RUQ abdominal pain and lower abdominal pain. She also continues to c/o ongoing acid reflux and nausea. States she is passing flatus, denies BM. Physical Exam Constitutional: not ill appearing, not in distress and not diaphoretic Respiratory: normal respiratory effort; no respiratory distress, no labored breathing and does not use accessory muscles Gastrointestinal (Abdomen): Inspection/Auscultation: + abdomen distended Percussion/Palpation: + abdomen tender (minimal TTP RUQ) and abdomen soft; no guarding and abdomen not rigid Results & Data Vital Signs (Past 12 Hours) Vital Signs Temp Pulse Pulse Resp BP Pulse Ox O2 Del Method 12/29/23 07:52 36.7 C 68 16 116/59 L 97 Room Air 12/29/23 07:00 57 L 12/29/23 02:54 36.6 C 58 L 18 97/62 L 97 Room Air 12/28/23 22:37 36.8 C 96 H 18 111/65 98 Room Air 12/28/23 21:48 56 L PG Care Time/CCT Total # of Minutes Spent Total Time Spent with Patient: Total time spent is greater than 50% in coordination of care (as documented) at patient's floor/unit and/or counseling patient: Coding Level of Care Code 12306 SUB INP/OBS CARE 1/25MIN Diagnoses Abdominal pain R10.9 Back pain M54.9 Nausea R11.0 GERD (gastroesophageal reflux disease) K21.9
--- NOTE | 2023-12-29 10:26 | Ultrasound Report ---
ABDOMINAL ULTRASOUND, RIGHT UPPER QUADRANT HISTORY: Acute right upper quadrant abdominal pain RUQ pain. COMPARISON: CT 12/28/2023 FINDINGS: Pancreas: The pancreas demonstrates a normal echotexture. Liver: Unremarkable. Gallbladder: No gallbladder wall thickening. No gallstones. CBD: 5 mm Right kidney: No hydronephrosis. IMPRESSION: No significant abnormality identified within the right upper quadrant. ACT 112: Negative or not required by law. Electronically signed by: Shelton Moran M.D. 12/29/2023 10:25 AM
[2023-12-29] MEDS: PIPERACILLIN/TAZOBACTAM 4.5 GM/100 ML BAG IV SCH (12:45)
--- NOTE | 2023-12-29 14:26 | Hospitalist Progress Note ---
Date of Service December 29, 2023 Assessment & Plan (1) Abdominal pain: Plan: 23-year-old lady with PMH of ADHD, anxiety/mood disorder, endometriosis complaining of sudden onset burning abdominal pain associated with nausea followed by bloody diarrhea. She reports abdominal pain going up to the chest causing her to be short of breath. Patient felt like she was going to pass out but did not actually pass out. Patient is going through her usual heavy menses since 2 to 3 days ago [employer]. She is being evaluated for the following: Abdominal pain Large bowel dilatation Concern for lower GI bleed Concern for UTI Possible GERD Possible sepsis: Respiratory rate and pulse are elevated at presentation, likely secondary to possible UTI Patient coming in with burning abdominal pain going up to the chest causing shortness of breath, patient denied passing out. Patient reports blood mixed loose stool x 1 prior to arrival, but also she is going through her usual heavy menses since 2 to 3 days ago [employer]. Trop 5.6 & Beta-hCG negative at presentation, hemoglobin around 12.5. TSH and lipase WNL. Of note, patient moves bowel once every 2 weeks per her. Admitting imagings: CTAP: Dilated large bowel/gaseous distention. No obvious colonic mass lesion/obstructive pathology seen. CXR with no acute findings. Further Imagings: US RUQ neg for acute findings. Lactate elevated at presentation at 2.2, status post IV fluid, lactate resolved. Rule out infection. Follow admitting blood and urine culture. General surgery onboard for large bowel dilatation. On clears today. Facilitate bowel regimen to help move bowel, no signs of obstruction, pt is moving gas ok, low threshold for repeat KUB imaging. GI evaled, likely infectious enteritis, will continue w/ zosyn 12/27. HnH daily or as needed. Patient started on Zosyn 12/27, to PO atb on dc for infectious enteritis. c/w probiotic. Patient started on pantoprazole, will continue, monitor symptoms. Patient reports improvement in her belly pain and distention, is feeling hungry, reports no vomiting. c/w bowel regimen. Hypokalemia:K 2.9 at presentation. Likely secondary to acute illness. Replete and monitor. resolved. Bilateral leg pain/cramping: Possibly secondary to hypokalemia, BLE US Doppler negative for DVT. Continue to monitor. ADHD, anxiety/mood disorder: Not on maintenance medication. History of endometriosis: Current abdominal pain different from endometriosis attack as per patient. US pelvis neg for acute findings. DVT prophylaxis. SCDs as no blood clot on Dopplers given GI bleed. Encourage ambulation. Full code Text document was generated using [employer] voice recognition software. It may contain grammatical or spelling errors. Kindly contact undersigned for clarification of any documentation item in question. Admission and Anticipated Discharge Date Admission Date: December 28, 2023 Subjective Patient was seen and examined at bedside. Patient was lying in bed, on room air, NAD, resting comfortably. Patient reports improving abdominal pain, is moving gas, has not moved bowel, reports upper belly pain towards the right, RUQ ultrasound negative. Discussed with general surgery, starting patient on clear liquid diet, will follow. Continue with bowel regimen. Patient denies fever/cough/chest pain. Physical Exam Physical Exam: GENERAL: Comfortable, slightly anxious, no respiratory distress SKIN: Normal color, warm HEENT: [place] palpebral conjunctivae, no ptosis, moist buccal mucosa NECK : Supple, no tenderness CHEST : CTA, no tenderness HEART : RRR, no obvious murmurs ABDOMEN: No distention, No tenderness EXTREMITIES : No LE swelling/tenderness, no other conspicuous deformities noted NEUROLOGIC : Coherent, no facial asymmetry, no other gross focality Results & Data Results & Data Vital Signs (Past 12 Hours) Vital Signs Temp Pulse Pulse Resp BP Pulse Ox O2 Del Method 12/29/23 13:44 76 12/29/23 11:52 36.6 C 61 16 91/54 L 98 Room Air 12/29/23 07:52 36.7 C 68 16 116/59 L 97 Room Air 12/29/23 07:00 57 L 12/29/23 02:54 36.6 C 58 L 18 97/62 L 97 Room Air
[2023-12-29] MEDS: ACETAMINOPHEN 325 MG TAB PO PRN (18:36)
[2023-12-29 20:01] LABS: Adenovirus F 40/41 PCR Not Detected (NotDetected); Astrovirus PCR Not Detected (NotDetected); Campylobacter PCR Not Detected (NotDetected); Cryptosporidium PCR Not Detected (NotDetected); Cyclospora cayetanensis PCR Not Detected (NotDetected); Entamoeba histolytica PCR Not Detected (NotDetected); Enteroaggregative E.coli(EAEC) Not Detected (NotDetected); Enteropathogenic E.coli (EPEC) Not Detected (NotDetected); Enterotoxigenic E.coli (ETEC) Not Detected (NotDetected); Giardia lamblia PCR Not Detected (NotDetected); Norovirus GI/GII PCR Not Detected (NotDetected); Plesiomonas shigelloides PCR Not Detected (NotDetected); Rotavirus A PCR Not Detected (NotDetected); Salmonella PCR Not Detected (NotDetected); Sapovirus PCR Not Detected (NotDetected); Shiga-like Toxin E.coli (STEC) Not Detected (NotDetected); Shigella/Enteroinvasive E.coli Not Detected (NotDetected); Vibrio cholerae PCR Not Detected (NotDetected); Vibrio species PCR Not Detected (NotDetected); Yersinia enterocolitica PCR Not Detected (NotDetected)
[2023-12-30 06:37] LABS: Hematocrit (blood only) 33.8 % (37.0-47.0); Hemoglobin 11.4 g/dl (12.0-16.0); Mean Corpuscular Hemoglobin 30.6 pg (25.0-34.0); Mean Corpuscular Hgb Conc 33.7 g/dL (32.0-36.0); Mean Corpuscular Volume 90.6 fL (80.0-100.0); Mean Platelet Volume 10.4 fL (9.4-12.4); Platelet Count 307 K/uL (130-400); RDW Coefficient of Variation 11.9 % (11.5-14.5); RDW Standard Deviation 39.7 fL (36.4-46.3); Red Blood Count 3.73 M/uL (4.20-5.40); White Blood Count 5.79 K/ul (4.8-10.8)
[2023-12-30 06:54] LABS: BUN Creatinine Ratio 10.9 (10-20); Calcium 9.3 mg/dl (8.6-10.3); Creatinine Clr Calc Pharmacy 136.8 ml/min; Magnesium 1.6 mg/dl (1.7-2.4)
[2023-12-30] MEDS: MAGNESIUM OXIDE 400 MG TAB PO SCH (09:48)
[2023-12-30] MEDS: POLYETHYLENE (MIRALAX) 17 GM PACK PO SCH (09:48)
--- NOTE | 2023-12-30 14:22 | Gastroenterology Progress Note ---
Date of Service December 30, 2023 Assessment & Plan (1) Diffuse abdominal pain: Plan: She is improved from admission pain. She can manage heartburn at home. Would advance diet and discharge as soon as possible. I suspect this was a self limited enteritis Admission and Anticipated Discharge Date Admission Date: December 28, 2023 Subjective She feels much better. Symptoms that she came in with are gone. Main complaint is heartburn Physical Exam Physical Exam: She looks well Results & Data Vital Signs (Past 12 Hours) Vital Signs Temp Pulse Pulse Resp BP Pulse Ox O2 Del Method 12/30/23 11:48 36.7 C 68 20 96/52 L 97 Room Air 12/30/23 07:45 37.0 C 69 20 102/64 98 Room Air 12/30/23 07:00 71 12/30/23 04:02 36.5 C 58 L 18 119/68 96 Room Air
--- NOTE | 2023-12-30 14:46 | Hospitalist Progress Note ---
Date of Service December 30, 2023 Assessment & Plan (1) Abdominal pain: Plan: 23-year-old lady with PMH of ADHD, anxiety/mood disorder, endometriosis complaining of sudden onset burning abdominal pain associated with nausea followed by bloody diarrhea. She reports abdominal pain going up to the chest causing her to be short of breath. Patient felt like she was going to pass out but did not actually pass out. Patient is going through her usual heavy menses since 2 to 3 days ago [employer]. She is being evaluated for the following: Abdominal pain Large bowel dilatation Concern for lower GI bleed Concern for UTI Possible GERD Possible sepsis: Respiratory rate and pulse are elevated at presentation, likely secondary to possible UTI Patient coming in with burning abdominal pain going up to the chest causing shortness of breath, patient denied passing out. Patient reports blood mixed loose stool x 1 prior to arrival, but also she is going through her usual heavy menses since 2 to 3 days ago [employer]. Trop 5.6 & Beta-hCG negative at presentation, hemoglobin around 12.5. TSH and lipase WNL. Of note, patient moves bowel once every 2 weeks per her. Admitting imagings: CTAP: Dilated large bowel/gaseous distention. No obvious colonic mass lesion/obstructive pathology seen. CXR with no acute findings. Further Imagings: US RUQ neg for acute findings. Lactate elevated at presentation at 2.2, status post IV fluid, lactate resolved. Follow admitting blood and urine culture -- No growth so far. General surgery onboard for large bowel dilatation. Full liq diet today, adv to low fiber if w/ no belly pain on full liq diet. Facilitate bowel regimen to help move bowel, no signs of obstruction, pt is now moving bowels. GI evaled, likely infectious enteritis, will continue w/ zosyn 12/27. HnH daily or as needed. Patient started on Zosyn 12/27, to PO atb on dc for infectious enteritis. c/w probiotic. Patient started on pantoprazole, will continue, monitor symptoms. Patient reports improvement in her belly pain and distention, diet being advanced today. c/w bowel regimen. Hypokalemia:K 2.9 at presentation. Likely secondary to acute illness. Replete and monitor. resolved. Bilateral leg pain/cramping: Possibly secondary to hypokalemia, BLE US Doppler negative for DVT. Continue to monitor. ADHD, anxiety/mood disorder: Not on maintenance medication. History of endometriosis: Current abdominal pain different from endometriosis attack as per patient. US pelvis neg for acute findings. DVT prophylaxis. SCDs as no blood clot on Dopplers given GI bleed. Encourage ambulation. Full code Text document was generated using [email or web address] voice recognition software. It may contain grammatical or spelling errors. Kindly contact undersigned for clarification of any documentation item in question. Admission and Anticipated Discharge Date Admission Date: December 28, 2023 Subjective Patient was seen and examined at bedside. Patient was lying in bed, on room air, NAD, resting comfortably. Patient reports improvement in abdominal pain, has moved bowel since last evening, pt not aware of blood in stool. pt advised to make note of stool color. Per RN, there was streak of blood in one of her initial BMs last evening. Discussed with general surgery, adv diet to full liquid diet, if not pain low fiber by evening. Continue with bowel regimen. Patient denies fever/cough/chest pain. Per RN, pt tolerated full liq diet very well, and no belly pain. will adv to low fiber diet for evening. Physical Exam Physical Exam: GENERAL: Comfortable, slightly anxious, no respiratory distress SKIN: Normal color, warm HEENT: [place] palpebral conjunctivae, no ptosis, moist buccal mucosa NECK : Supple, no tenderness CHEST : CTA, no tenderness HEART : RRR, no obvious murmurs ABDOMEN: No distention, No tenderness EXTREMITIES : No LE swelling/tenderness, no other conspicuous deformities noted NEUROLOGIC : Coherent, no facial asymmetry, no other gross focality Results & Data Results & Data Vital Signs (Past 12 Hours) Vital Signs Temp Pulse Pulse Resp BP Pulse Ox O2 Del Method 12/30/23 11:48 36.7 C 68 20 96/52 L 97 Room Air 12/30/23 07:45 37.0 C 69 20 102/64 98 Room Air 12/30/23 07:00 71 12/30/23 04:02 36.5 C 58 L 18 119/68 96 Room Air
--- NOTE | 2023-12-30 16:50 | Surgery Progress Note ---
<Statement entered by Herb Pereira DO - 12/31/23 12:41> I have seen and examined this patient. No surgical intervention. Consider follow up with GI and/or OBGYN Date of Service December 30, 2023 Assessment & Plan (1) Diffuse abdominal pain: Plan: Patient here with abdominal pain and CT findings of large bowel distention Pelvic US and RUQ us negative WBC normal and vitals stable Pt reports symptomatic improvement since admission Abdomen soft and less tender Tolerating advancement in diet and having + bowel function Continue PPI No plans for surgical intervention, may dispo when okay with medicine Admission and Anticipated Discharge Date Admission Date: December 28, 2023 Subjective Patient reports feeling better. Tolerating clears, no nausea/vomiting. + flatus and BMs Physical Exam Physical Exam: awake/alert, no distress Gastrointestinal (Abdomen): Percussion/Palpation: + abdomen tender (mild general discomfort, improving) and abdomen soft Results & Data Vital Signs (Past 12 Hours) Vital Signs Temp Pulse Pulse Resp BP Pulse Ox O2 Del Method 12/30/23 15:59 99.3 F 66 16 109/67 99 Room Air 12/30/23 15:00 82 12/30/23 11:48 98.1 F 68 20 96/52 L 97 Room Air 12/30/23 07:45 98.6 F 69 20 102/64 98 Room Air 12/30/23 07:00 71 PG Care Time/CCT Total # of Minutes Spent Total Time Spent with Patient: Total time spent is greater than 50% in coordination of care (as documented) at patient's floor/unit and/or counseling patient: Coding Level of Care Code 44670 SUB INP/OBS CARE 1/25MIN Diagnoses Diffuse abdominal pain R10.84
[2023-12-30 17:28] LABS: Fentanyl, Urine 2.2 ng/mL (<0.5); Norfentanyl, Urine NEGATIVE ng/mL (<0.5); medMATCH Fentanyl, Urine DNR; medMATCH Norfentanyl, Urine DNR
[2023-12-31] MEDS: CALCIUM CARBONATE 500 MG CHEWABLE TAB PO PRN (08:58)
[2023-12-31] MEDS: MAGNESIUM SULFATE / D5W 1 GM/100 ML BAG IV SCH (08:58)
--- NOTE | 2023-12-31 09:02 | Electrocardiogram Report ---
Test Reason : Blood Pressure : */* mmHG Vent. Rate : 63 BPM Atrial Rate : 63 BPM P-R Int : 152 ms QRS Dur : 86 ms QT Int : 416 ms P-R-T Axes : 24 48 30 degrees QTcB Int : 425 ms Normal sinus rhythm with sinus arrhythmia Normal ECG No previous ECGs available Confirmed by Heron Duenas ([id number]) on 12/31/2023 9:02:45 AM Referred By: NO PCP Confirmed By: Heron Duenas
[2023-12-31 11:37] VITALS: PULSE 60; RESP 16; TEMP 97.9; O2SAT 94
--- NOTE | 2023-12-31 12:42 | Discharge Summary ---
Date of Service December 31, 2023 Admission HPI Per Admitting Provider History obtained from patient, family, and records. Medical history significant for ADHD, anxiety/mood disorder, endometriosis. Recent [facility] ER visit 2 weeks ago for cough symptoms. Patient children with RSV. Chest x-ray negative for pneumonia. COVID-19 and influenza swabs negative. Patient discharged home with Katherine Landa. Last night, patient had sudden onset burning abdominal pain associated with nausea followed by bloody diarrhea. Abdominal pain going to the chest causing her to be short of breath. Denies headache symptoms. Patient felt like she was going to pass out. Achy bilateral leg pain. No recent antibiotic Rx or out-of-town travel. Usual heavy menses. Patient brought to ER for evaluation. 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 Admission Exam Per Admitting Provider GENERAL: Comfortable, slightly anxious, dysphonia, no respiratory distress SKIN: Normal color, warm HEENT: [place] palpebral conjunctivae, no ptosis, dry buccal mucosa NECK : Supple, no tenderness CHEST : CTA, no tenderness HEART : RRR, no obvious murmurs ABDOMEN: Marked distention, hypogastric tenderness EXTREMITIES : No LE swelling/tenderness, no other conspicuous deformities noted NEUROLOGIC : Coherent, no facial asymmetry, no other gross focality Principal Diagnosis Abdominal pain Last bowel dilatation Constipation Concern for lower GI bleed Concern for UTI Possible GERD Possible sepsis Discharge Exam GENERAL: Comfortable, no respiratory distress SKIN: Normal color, warm HEENT: [place] palpebral conjunctivae, no ptosis, moist buccal mucosa NECK : Supple, no tenderness CHEST : CTA, no tenderness HEART : RRR, no obvious murmurs ABDOMEN: No distention, No tenderness EXTREMITIES : No LE swelling/tenderness, no other conspicuous deformities noted NEUROLOGIC : Coherent, no facial asymmetry, no other gross focality Discharge Data Allergies Allergy/AdvReac Type Severity Reaction Status Date / Time diphenhydramine Allergy Swelling Verified 12/28/23 08:42 [From Benadryl] of Lip/Tongue/Throat nitrofurantoin Allergy Swelling Verified 12/28/23 08:42 of Lip/Tongue/Throat Consultations 12/28/23 04:28 ED Decision to Admit Stat 12/28/23 10:33 Consult Gastroenterology Routine 12/28/23 12:00 Consult General Surgery Routine Ordered Studies 12/28/23 01:39 CT abd pelvis IV con only Stat 12/28/23 06:05 US venous doppler LE BI Stat 12/28/23 11:58 US Pelvis [US pelvic complete] Routine 12/29/23 09:00 US abdomen limited Routine Hospital Course (1) Abdominal pain: 23-year-old lady with PMH of ADHD, anxiety/mood disorder, endometriosis complaining of sudden onset burning abdominal pain associated with nausea followed by bloody diarrhea. She reports abdominal pain going up to the chest causing her to be short of breath. Patient felt like she was going to pass out but did not actually pass out. 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 Trop 5.6 & Beta-hCG negative at presentation, hemoglobin around 12.5. TSH and lipase WNL. Of note, patient moves bowel once every 2 weeks per her. Admitting imagings: CTAP: Dilated large bowel/gaseous distention. No obvious colonic mass lesion/obstructive pathology seen. CXR with no acute findings. Further Imagings: US RUQ neg for acute findings. Lactate elevated at presentation at 2.2, status post IV fluid, lactate resolved. Follow admitting blood and urine culture -- No growth so far. General surgery evaled for large bowel dilatation. Pt tolerating low fiber diet w/ no issues, ok from Sx POV for discharge. Pt now moving bowels more regularly, pt advised to utilize [id number] stool softener and laxative with a goal of 1 bowel movement every 1 to 2 days. For concern of infectious enteritis, will consider short course of antibiotic, 7-day course from 12/27. Patient had an episode of chest discomfort in the morning relieved by Tums. Pantoprazole will be up to twice daily. Patient advised to follow-up with GI as an outpatient for evaluation of her possible GERD and Lower GI bleed, advised her to coordinate with PCP office to set up referral. Otherwise patient reports improvement in her belly pain and has been tolerating diet and feels better. Would like to go home. Hypokalemia:K 2.9 at presentation. Likely secondary to acute illness. Replete and monitor. resolved. Bilateral leg pain/cramping: Possibly secondary to hypokalemia, BLE US Doppler negative for DVT. Continue to monitor. ADHD, anxiety/mood disorder: Not on maintenance medication. History of endometriosis: Current abdominal pain different from endometriosis attack as per patient. US pelvis neg for acute findings. DVT prophylaxis. SCDs as no blood clot on Dopplers given GI bleed. Encourage ambulation. Full code Patient is being discharged with following instruction at the point of discharge: Follow-up with your primary care physician within a week time and likely you will need labs CBC/CMP/magnesium/phosphorus. As discussed at the bedside, utilize [id number] laxatives and stool softener with a goal of 1 bowel movement every 1 to 2 days. Incorporate diet with high fibers and adequate fluid hydration of about 2 to 2.5 L a day and adequate ambulation to help move bowel. You will be discharged on magnesium supplement, coordinate with your PCP office for further evaluation of your magnesium level in few days time upon discharge. You will be discharged on pantoprazole twice a day for likely GERD, you will likely benefit from outpatient GI doctors evaluation for evaluation of GERD and lower GI bleed. Coordinate with your PCP office to set up a referral for GI. For concern of infectious gastroenteritis, you will be discharged on antibiotic to complete 7-day course. Take probiotic for the duration of antibiotic. Take your medications as prescribed. Please make sure that you are able to get your medications today by calling your pharmacy before you leave the hospital so that your treatment continuity is not broken. Text document was generated using [employer] voice recognition software. It may contain grammatical or spelling errors. Kindly contact undersigned for clarification of any documentation item in question. Home Health Attestation I certify that this patient is under my care and that I, or a physicians media center assistant working with me, had a face to-face encounter that meets the home health [id number] encounter requirements with this patient. The encounter with the patient was in whole, or in part, for the following medical condition, which is the primary reason for home health care (list medical condition): I certify that, based on my findings, the following services are medically necessary home health services: My clinical findings support the need for the above services because: Further, I certify that my clinical findings support that this patient is homebound (i.e. absences from home require considerable and taxing effort and a re for medical reasons or adventism services or infrequently or of short duration when for other reasons) because: Certification for Home Health Services: Based on the above findings, I certify that this patient is confined to the home and needs intermittent [facility] care, physical therapy and/or speech therapy or continues to need occupational therapy. The patient is under my care, and I have initiated the establishment of the plan of care. This patient will be followed by a physician who will periodically review the plan of care. Total Time Total Time Spent Total Time Spent (In Minutes): 45 Discharge Plan Discharge Items Patient Disposition: Home - Self-Care Reason For Visit: CP, LGIB Discharge Diagnosis: Abdominal pain Last bowel dilatation Constipation Concern for lower GI bleed Concern for UTI Possible GERD Possible sepsis Activity: Resume your previous activity Non-emergency contact: Primary Care Provider Call non-emergency contact if: you have any medication questions and your symptoms worsen Follow-up/Referrals: Lauryn Grove MD [Primary Care Provider] - Diet: Low Fiber Addtl Attending Provider Instructions: Follow-up with your primary care physician within a week time and likely you will need labs CBC/CMP/magnesium/phosphorus. As discussed at the bedside, utilize [id number]-bducmcb laxatives and stool softener with a goal of 1 bowel movement every 1 to 2 days. Incorporate diet with high fibers and adequate fluid hydration of about 2 to 2.5 L a day and adequate ambulation to help move bowel. You will be discharged on magnesium supplement, coordinate with your PCP office for further evaluation of your magnesium level in few days time upon discharge. You will be discharged on pantoprazole twice a day for likely GERD, you will likely benefit from outpatient GI doctors evaluation for evaluation of GERD and lower GI bleed. Coordinate with your PCP office to set up a referral for GI. For concern of infectious gastroenteritis, you will be discharged on antibiotic to complete 7-day course. Take probiotic for the duration of antibiotic. Take your medications as prescribed. Please make sure that you are able to get your medications today by calling your pharmacy before you leave the hospital so that your treatment continuity is not broken. Pending Studies at Discharge: No Stand-Alone Forms: My [facility], Smoking Cessation Medications and DC Order Prescriptions: New bisacodyl 10 mg Suppository 10 mg MT DAILY PRN (Reason: constipation) Qty: 30 0RF Advanced Probiotic 625 mg (10 billion cell) Capsule 1 cap PO DAILY 7 Days Qty: 7 0RF magnesium oxide 400 mg (241.3 mg magnesium) Tablet 400 mg PO BID Qty: 60 0RF pantoprazole 40 mg Tablet,Delayed Release (Dr/Ec) 40 mg PO BID Qty: 60 0RF polyethylene glycol 3350 [Miralax] 17 gram Powder In Packet 17 g PO DAILY PRN (Reason: laxative effect) Qty: 30 0RF amoxicillin-pot clavulanate 875-125 mg tablet 1 tab PO BID 4 Days Qty: 8 0RF Continued multivitamin Tablet 1 tab PO DAILY Discharge Orders: Discharge Order (Routine); Ordered 12/31/23 Ordered By: Radames Harvey Admission Data Admit Date/Time: 12/28/23 05:53 Attending Provider: Radames Harvey Admit Provider: Aristides Mason Primary Care Provider: Lauryn Grove Other Providers: Aristides Mason; Jenna Corey; Leandro De La Cruz; Yusra Farmer; Mirian Lakhani; Nova Gardner; Amber Rojas; Tanesha Montes; Ulysses Reinoso; Hanna Rios; Sandra Haji; Luis Carver S; Kaylen Aguilar; Laura Montelongo; Karen Sparks; Sue Alvarado; Yasmine Gibson; Kevin Casanova; Yas Valdivia; Sherri Shetty Jr; Jim Samano; Sebastián Olsen; Jhon Elam; Jimenez Anaya; Emmy Dominguez; Reed Houston I; Deja Guzman; Herb Pereira
[2023-12-31 12:47] VITALS: BP 105/65
== END 2023-12-31 14:16 | disposition home or self-care (01) | DRG 872 ==
LOC: ED 01:27 → 2N 05:53 → INTOOBSV 05:53 → 2N 10:00